=== PATIENT | female | born 1955 | race Caucasian/White ===

== ENCOUNTER 2022-07-31 15:04 | Emergency (ER) | payer MEDICARE, SELFPAY ==
[2022-07-31 15:07] VITALS: BP 191/79; PULSE 60; RESP 18; TEMP 36; O2SAT 97; BMI 34.0
--- NOTE | 2022-07-31 15:21 | CRLHL7_ITS ---
For Patients: As a result of the Century Cures Act, medical imaging exams and procedure reports are released immediately into your electronic medical record. You may view this report before your referring provider. If you have questions, please contact your health care provider. INDICATION: Headache. Trauma TECHNIQUE: Non-contrast CT of the head is submitted. No comparisons. FINDINGS: The ventricles, sulci and gyri are of normal size, shape and contour. Midline structures are centrally located. No convincing evidence of intra- or extra-axial fluid collections. Mild soft tissue swelling overlying the apical left parietal calvarium compatible with a small scalp hematoma. IMPRESSION: 1. No radiographic evidence of acute intracranial abnormalities. 2. Findings compatible with a small left parietal scalp hematoma Dictated by Mihir Ji MD @ 07/31/2022 3:41:29 PM Please note that all CT scans at this facility use dose modulation, iterative reconstruction, and/or weight-based dosing when appropriate to reduce radiation dose to as low as reasonably achievable. Dictated by: Mihir Ji MD @ 07/31/2022 15:41:36 (Electronically Signed)
--- NOTE | 2022-07-31 16:04 | ED_ITS ---
HPI - General Adult General Chief complaint: Head Injury/Pain Stated complaint: Fell this am, hit back of head Time Seen by Provider: 07/31/22 15:08 Source: patient Mode of arrival: ambulatory Limitations: no limitations History of Present Illness HPI narrative: 66-year-old female coming in today complaining of a fall that occurred approximately 7 hours prior to arrival. Patient slipped on the ice and fell backwards hitting her head on the concrete. She states that she has a headache that is mild but encompasses most of her head. She denies any neck pain. She denies confusion, fogginess or difficulty concentrating. She states that she had a bloody nose several hours after the fall she became concerned. She did not hit her face, she has no facial pain. Patient does take a daily aspirin. Related Data Home Medications Medication Instructions Recorded Confirmed B-complex with vitamin C 1 cap PO QDAY 11/26/21 07/31/22 amlodipine 5 mg tablet 5 mg PO DAILY 11/26/21 07/31/22 aspirin 81 mg tablet,delayed 81 mg PO QDAY 11/26/21 07/31/22 release (Adult Low Dose Aspirin) biotin 300 mcg tablet 300 mcg PO QDAY 11/26/21 07/31/22 cholecalciferol (vitamin D3) 125 125 mcg PO QDAY 11/26/21 07/31/22 mcg (5,000 unit) capsule coenzyme Q10 50 mg capsule 50 mg PO DAILY 11/26/21 07/31/22 lisinopril 5 mg tablet 5 mg PO DAILY 11/26/21 07/31/22 vitamin B complex 1 tab PO QDAY 11/26/21 07/31/22 metoprolol succinate 50 mg 50 mg PO BID 07/31/22 07/31/22 tablet,extended release 24 hr Previous Rx's Medication Instructions Recorded insulin aspart U-100 100 unit/mL 1 - 5 unit (0.01 - 0.05 mL) subcut 11/26/21 subcutaneous solution TIDWMEAL #10 mL metoprolol succinate 100 mg 100 mg PO DAILY #90 tabs 11/26/21 tablet,extended release 24 hr furosemide 20 mg tablet 20 mg PO QDAY CKD #90 tabs 12/22/21 nitroglycerin 0.4 mg sublingual 0.4 mg sublingual ONCE PRN CAD 12/22/21 tablet #100 tabs isosorbide mononitrate 60 mg 120 mg PO DAILY #180 tabs 04/08/22 tablet,extended release 24 hr hydrocodone 5 mg-acetaminophen 325 1 - 2 tab PO Q4H PRN pain #20 tabs 06/15/22 mg tablet prednisone 20 mg tablet 40 mg PO QDAY #10 tabs 06/24/22 Allergies Allergy/AdvReac Type Severity Reaction Status Date / Time olmesartan Allergy Intermediate hyperkalemi Verified 06/24/22 09:25 a benazepril Allergy Unknown Unknown Verified 06/24/22 09:25 HMG-CoA reductase inhibitor Allergy Mild Unknown Uncoded 06/24/22 09:25 Influenza Vaccines Allergy Mild Nausea Uncoded 06/24/22 09:25 Review of Systems Status of ROS: Reports: 10 or more systems reviewed and unremarkable except as noted in History and below [facility] History History of cardioversion (03/01/17) History of malignant neoplasm of uterus (2001) History of pulmonary valve stenosis History of sarcoma of soft tissue (2003) Surgical History History of coronary artery stent placement (07/2015) History of hysterectomy (2001) History of Alma Rosa-en-Y gastric bypass (2005) Family History Father Diabetes Sister Diabetes Mother COPD (chronic obstructive pulmonary disease) Social History Narrative: . in October 2021. [facility] [address] [facility]. On social security disability for endometrial cancer and associated health problems. 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 Moved back from [place] due to 's health issues. She has a daughter and 2 grand children in [place]. Originally from [place]. Walks for exercise. No tobacco, alcohol or recreational drug use. Smoking Status: Former smoker Do you use any of these nicotine containing products: None Second hand tobacco smoke exposure: No How often do you have a drink containing alcohol: monthly or less AUDIT-C Alcohol total score: 1 Non-prescribed substance use: denies use Little interest or pleasure in doing things: several days Feeling down, depressed, or hopeless: not at all Exam Narrative: Exam Narrative: Well-nourished well-developed patient in no acute distress. Alert and oriented. Answers questions appropriately. Mood and affect are appropriate. Thoughts ar e goal oriented and rational. No tangential or magical thinking noted. Patient speaks in full sentences without needing to catch her breath. Speech is not slurred or pressure. GCS is 15. There is no obvious bleeding. She is speaking and breathing without difficulty. HEENT: Normocephalic . Pupils are equally round reactive to light. Extraocular muscles are intact. Conjunctivae are moist without any icterus noted. Moist mucous membranes. Posterior pharynx is normal. Neck is soft without any lymphadenopathy or thyromegaly. No masses are appreciated. Patient does have a small hematoma on the posterior parietal area. There is no crepitus or significant tenderness noted around the area. Cardiovascular: Heart is regular rate and rhythm. Lungs: Clear to auscultation bilaterally. Skin: Well perfused without any obvious rashes. Const: Vital Signs, click to edit/add: Vital Signs - 24 hr 07/31/22 15:07 Temperature 96.8 F L Pulse Rate [Pulse Oximeter] 60 Respiratory Rate 18 Blood Pressure [Le ft Upper Arm] 191/79 H Pulse Oximetry 97 Oxygen Delivery Me thod Room Air Course Course Hospital Course: Given her age and headache we did go ahead and proceed with a head CT which read by me, did not show evidence of acute intracranial bleeding. Vital Signs Vital signs: Initial Vital Signs Temperature 96.8 F L 07/31/22 15:07 Temperature Source Temporal Artery Scan 07/31/22 15:07 Pulse Rate 60 07/31/22 15:07 Respiratory Rate 18 07/31/22 15:07 Blood Pressure 191/79 H 07/31/22 15:07 Blood Pressure Mean 116 07/31/22 15:07 Blood Pressure Position Sitting 07/31/22 15:07 Pulse Oximetry 97 07/31/22 15:07 Oxygen Delivery Method 07/31/22 15:07 Vital Signs Temperature 96.8 F L 07/31/22 15:07 Pulse Rate 60 07/31/22 15:07 Respiratory Rate 18 07/31/22 15:07 Blood Pressure 191/79 H 07/31/22 15:07 Pulse Oximetry 97 07/31/22 15:07 Oxygen Delivery Method 07/31/22 15:07 Temperature 96.8 F L 07/31/22 15:07 Pulse Rate 60 07/31/22 15:07 Respiratory Rate 18 07/31/22 15:07 Blood Pressure 191/79 H 07/31/22 15:07 Pulse Oximetry 97 07/31/22 15:07 Oxygen Delivery Method 07/31/22 15:07 Medical Decision Making MDM Narrative Medical decision making narrative: Fall with close head injury. We discussed symptomatic treatment reasons for follow-up. Patient was agreeable and had no other questions. Imaging Data CT scan - head: Attestation: I have reviewed the pertinent imaging results. Radiologist's impression: Headache. Trauma TECHNIQUE: Non-contrast CT of the head is submitted. No comparisons. FINDINGS: The ventricles, sulci and gyri are of normal size, shape and contour. Midline structures are centrally located. No convincing evidence of intra- or extra- axial fluid collections. Mild soft tissue swelling overlying the apical left parietal calvarium compatible with a small scalp hematoma. IMPRESSION: 1. No radiographic evidence of acute intracranial abnormalities. 2. Findings compatible with a small left parietal scalp hematoma Discharge Plan Discharge Clinical Impression: Acute head trauma Patient Disposition: Home, Self-Care Condition: Stable Additional Instructions: There was no evidence of bleeding inside your brain today. Okay to use Tylenol as needed for discomfort. You may experience increasing soreness across your neck and upper back tomorrow -okay to use heat to sore areas, do not apply heat directly to skin. Follow-up with your primary care provider as needed. Prescriptions: No Action prednisone 20 mg tablet 40 mg PO QDAY Qty: 10 0RF lisinopril 5 mg tablet 5 mg PO DAILY biotin 300 mcg tablet 300 mcg PO QDAY amlodipine 5 mg tablet 5 mg PO DAILY coenzyme Q10 50 mg capsule 50 mg PO DAILY aspirin [Adult Low Dose Aspirin] 81 mg tablet,delayed release (DR/EC) 81 mg PO QDAY B-complex with vitamin C Capsule 1 cap PO QDAY cholecalciferol (vitamin D3) 125 mcg (5,000 unit) capsule 125 mcg PO QDAY vitamin B complex Tablet 1 tab PO QDAY metoprolol succinate 100 mg tablet extended release 24 hr 100 mg PO DAILY Qty: 90 3RF insulin aspart U-100 100 unit/mL solution 1 - 5 unit subcut TIDWMEAL Qty: 10 12RF Rx Instructions: give as directed by sliding scale. Max daily dose of 20u/day. metoprolol succinate 50 mg tablet extended release 24 hr 50 mg PO BID nitroglycerin 0.4 mg tablet, sublingual 0.4 mg sublingual ONCE PRN (Reason: CAD) Qty: 100 0RF Rx Instructions: One tablet p.o. Q 5 minutes p.r.n. x3. furosemide 20 mg tablet 20 mg PO QDAY Qty: 90 2RF isosorbide mononitrate 60 mg tablet extended release 24 hr 120 mg PO DAILY Qty: 180 2RF hydrocodone-acetaminophen 5-325 mg tablet 1 - 2 tab PO Q4H PRN (Reason: pain) Qty: 20 0RF Follow Up/Referrals: Srinivas Demarco MD [Primary Care Provider] - Stand Alone Forms: MyHealth Info Instructions
== END 2022-07-31 16:11 | disposition home or self-care (01) ==
PROVIDERS: Emergency Provider Family Medicine; PCP Family Medicine
DX: S09.90XA Unspecified injury of head, initial encounter (principal); W00.0XXA Fall on same level due to ice and snow, initial encounter
CPT/HCPCS: 70450; 99283; 99284

== ENCOUNTER 2022-10-28 16:00 | Outpatient (RCR) | payer OTHER, SELFPAY ==
--- NOTE | 2022-07-15 11:31 | PT.OPEX ---
PT [place] Outpatient Eval INITIAL EVAL MEDICARE NEED SIGNATURE PT [facility] Outpatient Eval Start: 07/15/22 07:22 Freq: Status: Active Protocol: Document 07/15/22 07:24 UZAIR (Rec: 07/15/22 11:24 UZAIR [id number]) E-signed By Brian Bertrand DPT Physical Therapy Outpatient Evaluation Insurance Information Recert Due Date 10/08/22 Insurance Name Medicare B Medical Diagnosis neck pain, cervicalgia Treating Diagnosis neck pain, limited ROM, muscle weakness Referring MD abel galan Subjective Subjective Nevin comes into clinic dealing with neck pain that has been consistent for a month or more , mid April. She has been doing more traveling where she initially thought it was from driving. However, she does remember having a fall where she tweaked her neck and hit her head to a degree. Did get some tests for the head and neck but nothing came from it. Since than she has been having some level of pain that can vary 4 at rest to 9 with movement. heating the neck and mid back can help but not resolve symptoms. Notes bending down or looking down can irritate things and increase pain. Does feel limited in her ability to rotate her neck. NO sense of nausea or minimal headache symptoms. Pain Comments 4-01/31 Current Work Status Retired Occupation htn, hx of heart attacks, stent placement, hx of cancer Objective Other/Pertinent Objective CERVICAL ROM Flexion: 44 more painful vs ext Extension: 24 pain Right Rotation: 45 Left Rotation: 35 Right side bend: 10 Left Side bend: 8 SHOULDER AROM can reach 120- 130 degrees flexion B 100-110 degrees abduction but with increased UT pain after NECK/SHOULDER MMT: Shoulder shrug: R 4+/5 L4+ /5 Shoulder flexion: R 4-/5 L 4-/ 5 Shoulder abduction: R 4-/5 L4- /5 Shoulder External Rotation: R 4+/5 L4+ /5 Shoulder Internal Rotation: R 4+/5 L 4+/5 Elbow Flexion: R 4+/5 L 4+/5 Elbow Ext: R 4+/5 L 4+/5 SPECIAL TEST Spurlings Test: - Cervical distraction test: : - Shoulder impingement HawkinsJaleny Test: + B Neer Test: +B Lynn Test: +B Horizontal Adduction Test: +B JOINT MOBILITY/PALPATION increased upper trap tightness with referral to head increased sub occipital and cervical extensor tightness hypomobile cervical spine TX: chin tuck x 12 corner pec stretch 5 sec holds x 12 scap squeeze 5 sec holds x 12 trialed seated pec stretch did not tolerate Assessment Assessment/Impression Pt is a 66 yr old female who presents with concerns of neck pain. Patient also has notable objective findings including limited ROM, decreased strength also likely contributing to the problem. Patient is a good candidate for skilled therapy to target deficits described above. Skilled PT intervention is necessary for use of therapeutic exercise manual therapy, neuromuscular re- education, and therapeutic activity. Functional impairments include difficulty with: looking, reaching, pushing pulling, driving. See appropriate sections of PT eval for complete list of goals and POC. D/C plan and criteria is for pt to achieve the goals as listed below or until max rehab potential is met. Pt was agreeable with plan of care and goals established Plan of Care Rehabilitation Potential Good Physical Therapy Goals STG Patient will demonstrate/ report ability to reach to 135 degrees shoulder flexion and abduction with pain level <1/ 10, to allow for qa automation engineer, hygiene, work within 4 weeks Patient will report/ demonstrate ability to drive 45-60 minutes for community transportation within 4 weeks without limitations in head movements LTG Patient will demonstrate/ report ability to reach to 150 degrees shoulder flexion and abduction with pain level <1/ 10, to allow for qa automation engineer, hygiene, work within 8 weeks Patient will report or demonstrate the ability to have 4+/5 strength in all shoulder and elbow planes for household and recreational activity within 8 weeks. Patient will report/ demonstrate ability to drive 90-120 minutes for community transportation within 8 weeks without limitations in head movements Pt will be independent with HEP within 8 weeks to allow for independence and continued improvement past formal therapy Coordination/Communication With Referral Source Treatment Plan/Direct Interventions Joint Mobilization,Manual Therapy,Neuromuscular Re-ed, Self-Care/Home Management, Therapeutic Activities, Therapeutic Exercises Frequency/Duration 1-2 a week for 6-12 weeks Patient Will Be Discharged From Therapy Completion of LTG(s), Independent w/HEP, Independently Progressing Evaluation Billing Complexity Moderate Certification Information Initial Certification Date 07/15/22 Ending Certification Date 10/08/22 Physician Comment/Change : Physician NPI Number #
== END 2022-12-15 09:59 | disposition home or self-care (01) ==
PROVIDERS: PCP Family Medicine; Visit Provider Family Medicine
DX: M54.2 Cervicalgia (principal); Z51.89 Encounter for other specified aftercare
CPT/HCPCS: 97110; 97140; 97162; 97535

== ENCOUNTER 2023-02-04 13:55 | Outpatient (CLI) | payer MEDICARE, SELFPAY | END 2023-02-04 13:56 | disposition home or self-care (01) | LOC: NFLDREF 13:56 | PROVIDERS: PCP Family Medicine; Visit Provider Family Medicine | DX: E03.9 Hypothyroidism, unspecified (principal); I10 Essential (primary) hypertension; E78.5 Hyperlipidemia, unspecified; E66.9 Obesity, unspecified; E11.40 Type 2 diabetes mellitus with diabetic neuropathy, unspecified; N18.9 Chronic kidney disease, unspecified | CPT/HCPCS: 80053; 82043; 82570; 84439; 84443 ==

== ENCOUNTER 2023-04-21 09:48 | Outpatient (CLI) | payer MEDICARE, SELFPAY | END 2023-04-21 09:49 | disposition home or self-care (01) | LOC: NFLDREF 12:44 | PROVIDERS: PCP Family Medicine; Referring Provider Family Medicine; Visit Provider Internal Medicine Nephrology | DX: I13.0 Hypertensive heart and chronic kidney disease with heart failure and stage 1 through stage 4 chronic kidney disease, or unspecified chronic kidney disease (principal); I50.9 Heart failure, unspecified; N18.32 Chronic kidney disease, stage 3b; E11.22 Type 2 diabetes mellitus with diabetic chronic kidney disease; R80.9 Proteinuria, unspecified; E87.5 Hyperkalemia; R82.79 Other abnormal findings on microbiological examination of urine | CPT/HCPCS: 80069; 82043; 82570; 87086 ==

== ENCOUNTER 2023-04-28 11:00 | Outpatient (CLI) | payer MEDICARE, SELFPAY ==
--- NOTE | 2023-04-28 11:00 | CRLHL7_ITS ---
Patient: ANDRES HENRIQUEZ Facility:?[facility] Patient ID:?[id number] Site Patient ID:?[id number]. Site :?[id number] Study:?US-Abdomen RENAL-04/28/2023 11:43:30 AM Ordering Physician:Faith Parnell Final Report: CLINICAL HISTORY: CKD, HX ENDOMETRIAL CARCINOMA COMPARISON: 08/16/2019 TECHNIQUE: Marie scale and color Doppler images were acquired of the kidneys. FINDINGS: Partially exophytic hypoechoic structure arises from the upper pole of the left kidney measures 1.9 cm. The right kidney measures 9.4cm in length and the left kidney measures 9.2cm in length. The renal cortex measures 1.3 cm on the right and 1.2 cm on the left. Trace right perinephric fluid. No abnormal vascularity. IMPRESSION: Indeterminate hypoechoic structure arising from the upper pole of the left kidney, cyst versus other. CT recommended. No hydronephrosis. --ADDENDUM-- ADDENDUM: The sonogram images do in fact measure a lesion within the left kidney, however, there is no lesion within the left kidney on the subsequent MRI dated 07/22/2023. The suspicious renal lesion is indeed within the right kidney based on the MRI. The right renal lesion on MRI is not discernible on the ultrasound. In conclusion, the MRI shows a suspicious lesion within the right kidney without a left renal lesion. The ultrasound images appear correct and the structure measured on the left appears to have been artifactual. Puneet Montemayor M.D. Diagnostic Radiologist [email or web address] SOHAIL/ashlyn D& Transcribed: 12:14 p.m. Dictated by Puneet Montemayor MD @ 04/28/2023 12:09:48 PM (Electronically Signed)
== END 2023-04-28 11:01 | disposition home or self-care (01) ==
LOC: US 11:01
PROVIDERS: PCP Family Medicine; Visit Provider Internal Medicine Nephrology
DX: N18.9 Chronic kidney disease, unspecified (principal)
CPT/HCPCS: 76775

== ENCOUNTER 2023-05-07 15:20 | Outpatient (CLI) | payer MEDICARE, SELFPAY | END 2023-05-07 15:21 | disposition home or self-care (01) | PROVIDERS: PCP Family Medicine; Visit Provider Internal Medicine Cardiovascular Disease | DX: Z00.00 Encounter for general adult medical examination without abnormal findings (principal); E78.5 Hyperlipidemia, unspecified | CPT/HCPCS: 80061 ==

== ENCOUNTER 2023-07-07 08:08 | Outpatient (CLI) | payer MEDICARE, SELFPAY ==
--- OUTSIDE RECORDS SUMMARY | 2023-07-07 12:47 | XMS_ITS | Clinical Summary ---
Author Name Unknown Organization [facility] Address [place], [place] [address] Care Team Providers Care Respiratory Therapy Manager Name Role Phone Srinivas Demarco MD Primary Care Provider [phone] Allergies Active Allergy Reactions Criticality Noted Date Comments Benazepril Headache 10/12/2005 Influenza Virus Vaccines Nausea Only 11/27/2004 Olmesartan Hyperkalemia 08/12/2019 Rcgvvid-Xiy-Adc Reductase Inhibitors *Unknown 12/14/2016 Tolerating Atorvastatin as of 09/14/2019 Medications Medication Sig Dispensed Refills Start Date End Date Status coQ10, ubiquinol, 100 mg cap Take 1 capsule by mouth once daily. 0 Active acetaminophen (TYLENOL EXTRA STRENGTH) 500 mg tablet Take 1,000 mg by mouth every 6 hours if needed (muscle pain, cramping). Max acetaminophen dose: 4000mg in 24 hrs. 0 Active insulin aspart U-100 (NOVOLOG) 100 unit/mL (3 mL) solution for injection Inject subcutaneous. Dose per carbs. Usually 3-5 units BID WM, and rarely extra dose with high calorie meal midday 0 Active aspirin chewable 81 mg chewable tabletIndications: Coronary artery disease, angina presence unspecified, unspecified vessel or lesion type, unspecified whether [place] or transplanted heart Take 1 tablet by mouth once daily. 90 tablet 3 08/15/2019 Active nitroglycerin (NITROSTAT) 0.4 mg sublingual tabletIndications: Coronary artery disease, angina presence unspecified, unspecified vessel or lesion type, unspecified whether [place] or transplanted heart Place 1 tablet under the tongue every 5 minutes if needed for Chest Pain (Up to 3 doses). 25 tablet. 4 04/24/2020 Active cholecalciferol, Vitamin D3, (VITAMIN D-3) 5,000 unit tab tablet Take 1 tablet by mouth once every other day. 90 tablet 1 06/07/2020 Active iron, carbonyl (PERFECT IRON) 25 mg iron tab Take by mouth. 0 06/07/2020 Active medication order composer B complex with vitamin C 1 tablet daily in the pm 0 09/04/2020 Active biotin 5,000 mcg TbDi Take 1 Tablet (5,000 mcg) by mouth. 0 09/04/2020 Active Pikkk-6-LHH-EPA-Fi sh Oil (Fish Oil) 1,200 (144-216) mg capsule Take by mouth. 0 09/04/2020 Active medication order composer Beet extract 3 tabs daily 0 09/04/2020 Active cyanocobalamin (VITAMIN B12) 1,[address] under the tongue once daily. 0 09/04/2020 Active isosorbide mononitrate (IMDUR) 60 mg extended release tablet 24 hourIndications:HT N (hypertension),Cor onary artery disease involving [place] coronary artery of [place] heart with unstable angina pectoris (HC) TAKE TWO TABLETS BY MOUTH EVERY DAY 60 tablet. 0 09/08/2020 Active HYDROcodone-acetam inophen (NORCO) 5-325 mg per tablet States takes as needed 0 09/25/2020 Active furosemide (LASIX) 20 mg tabletIndications: Stage 3b chronic kidney disease (HC),HTN (hypertension),Hyp erkalemia TAKE ONE TABLET BY MOUTH EVERY MORNING 90 Tablet 3 12/03/2021 Active medication order composer Garlic with turmeric and cayenne 200 mg BID 0 01/01/2022 Active Zinc Gluconate 30 mg tablet Take by mouth once daily. 0 01/01/2022 Active medication order composer Quercetin 500mg once daily 0 01/01/2022 Active amLODIPine (NORVASC) 5 mg tabletIndications: HTN (hypertension) Take 2 Tablets (10 mg) by mouth once daily. 180 Tablet 3 01/13/2022 Active metoprolol succinate (TOPROL XL) 50 mg sustained-release tabletIndications: HTN (hypertension) TAKE 2 TABLETS BY MOUTH ONCE DAILY. 180 Tablet 3 10/29/2022 Active lisinopriL (PRINIVIL; ZESTRIL) 5 mg tabletIndications: HTN (hypertension),Pro teinuria, unspecified type TAKE ONE TABLET BY MOUTH ONCE EVERY DAY IN THE EVENING. 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 Per pt, s/p radiation and resection History of endometrial cancer 08/16/2019 Hypomagnesemia 08/14/2019 Elevated troponin level not due to acute coronar y syndrome 08/13/2019 Stress-induced cardiomyopathy 08/13/2019 CAD (coronary artery disease) 08/12/2019 Overview: - 08/19/19: s/p BENEDICT pLAD, s/p BENEDICT dLAD HTN (hypertension) 08/12/2019 HLD (hyperlipidemia) 08/12/2019 Hyperkalemia 08/12/2019 Atrial flutter 08/12/2019 NSTEMI (non-ST elevated myocardial infarction) 0 07/23/2019 Overview: BENEDICT to prox and distal LAD 08/18/2019 Hypertensive heart disease without heart failure History of coronary artery stent placement History of atrial flutter Type 2 diabetes mellitus with hyperlipidemia Diabetic nephropathy associa rocio with type 2 diabetes mellitus Proteinuria Contrast dye induced nephropathy Hypervolemia Type 2 diabetes with complication Obesity Hyperlipidemia Edema Benign essential HTN Resolved Problems Problem Noted Date Diagnosed Date Resolved Date Acute non-ST elevation myoca rdial infarction (NSTEMI) 08/17/2019 09/04/2020 Hyperkalemia 08/14/2019 02/13/2021 CHARLY (acute kidney injury) Chronic kidney disease, stage III (moderate) 09/04/2020 ATN (acute tubular necrosis) 09/04/2020 Encounters Date Type Department Care Team Description 05/07/2023 3:00 PM FIBER OPTIC ASSEMBLY WORKER Office Visit [facility] [address] [place] [address] Kosta James MD from Last 3 Months Family History Medical History Relation Name Comments Diabetes Maternal Grandfather Diabetes Paternal Grandmother Diabetes Sister Cancer-breast No Family History Cancer-colon No Family History Relation Name Status Comments Maternal Grandfather Paternal Grandmother Sister Social History Tobacco Use Types Packs/Day Years Used Date Smoking Tobacco: Former Smokeless Tobacco: Never Tobacco Cessation:Counseling Given: Yes Alcohol Use Standard Drinks/Week Comments Not Currently 0 (1 standard drink = 0.6 oz pur e alcohol) Social Connections Answer Date Recorded Frequency of Communication with Friends and Fami ly Not on file 05/14/2021 Financial Resource Strain Answer Date R ecorded Difficulty of Paying Living Expenses Not on file 05/14/2021 Difficulty of Paying Living Expenses Not on file 05/14/2021 Sex and Gender Information Value Date Recorded Sex Assigned at Not on file Gender Identity Not on file Sexual Orientation Not on file Obstetrics History Last Filed Vital Signs Vital Sign Reading Time Taken Comments Blood Pressure 138/80 05/07/2023 3:23 PM FIBER [employer] ASSEMBLY WORKER Pulse 57 05/07/2023 3:23 PM FIBER OPTIC ASSEMBLY WORKER Temperature 36.6 ??C (97.9 ??F) 01/09/2022 11:43 PM C DT Respiratory Rate 16 01/30/2022 1:20 PM CDT Oxygen Saturation 99% 05/07/2023 3:23 PM FIBER [employer]IC ASSEMBLY WORKER Inhaled Oxygen Concentration - - Weight 86.6 kg (191 lb) 01/30/2022 1:20 PM CDT Height 162.6 cm (5' 4) 01/09/2022 11:43 PM CDT Body Mass Index 32.79 01/09/2022 11:43 PM CDT Plan of Treatment Health Maintenance Due Date Last Done Comments COVID-19 vaccine series (#1) [birth year]11/1956 Pneumococcal series for age 65+ (1 of 2 - PCV) 1960 Tdap 1965 Depression screening for age 12+ 1966 Hepatitis C screening for age 18-79 1972 Tetanus booster 1974 Colonoscopy through age 75 10/10/1999 Mammogram for age 45-75 10/10/1999 Zoster (shingles) series for age 50+ (1 of 2) 2004 DEXA/DXA scan for age 65+ 10/10/2019 Medicare Wellness for age 65+ 10/10/2019 BMI (ht and wt on same day) for age 18+ 09/14/2020 0 09/15/2019 Influenza for age 65+ 01/22/2023 Lipids for age 45-75 05/30/2025 05/30/2020, 08/12/19 20 Advance Directives Latest Code Status on File Code Status Date Activated Date Inactivated Comments Full Code 08/12/2019 12:58 AM 08/20/2019 4:14 PM Care Teams Respiratory Therapy Manager Relationship Specialty Start Date End Date Srinivas Demarco MD [address] [place] [address] PCP - General Family Practice 09/04/20
== END 2023-07-07 08:09 | disposition home or self-care (01) ==
LOC: NFLDREF 12:45
PROVIDERS: PCP Family Medicine; Referring Provider Family Medicine; Visit Provider Internal Medicine Nephrology
DX: N18.9 Chronic kidney disease, unspecified (principal); I10 Essential (primary) hypertension; N28.9 Disorder of kidney and ureter, unspecified
CPT/HCPCS: 80069; 82043; 82570; 87086

== ENCOUNTER 2023-07-13 09:58 | Outpatient (CLI) | payer MEDICARE, SELFPAY ==
--- OUTSIDE RECORDS SUMMARY | 2023-07-13 10:00 | XMS_ITS | Clinical Summary ---
Author Name Unknown Organization [facility] Address [place], [place] [address] Care Team Providers Care Grinder Setup Operator Name Role Phone Srinivas Demarco MD Primary Care Provider [phone] Allergies Active Allergy Reactions Criticality Noted Date Comments Benazepril Headache 10/12/2005 Influenza Virus Vaccines Nausea Only 11/27/2004 Olmesartan Hyperkalemia 08/12/2019 Diaouxr-Cga-Kfl Reductase Inhibitors *Unknown 12/14/2016 Tolerating Atorvastatin as [...] unspecified vessel or lesion type, unspecified whether [place] or transplanted heart Take 1 tablet by mouth once daily. 90 tablet 3 08/15/2019 Active nitroglycerin (NITROSTAT) 0.4 mg sublingual tabletIndications: Coronary artery disease, angina presence unspecified, unspecified vessel or lesion type, unspecified whether [place] or transplanted heart Place 1 tablet under [...] (5,000 mcg) by mouth. 0 09/04/2020 Active Mtgld-2-RJH-EPA-Fi sh Oil (Fish Oil) 1,200 (144-216) mg capsule Take by mouth. 0 09/04/2020 Active medication order composer Beet extract 3 tabs daily 0 09/04/2020 Active cyanocobalamin (VITAMIN B12) 1,[address] under the tongue once daily. 0 09/04/2020 Active isosorbide mononitrate (IMDUR) 60 mg extended release tablet 24 hourIndications:HT N (hypertension),Cor onary artery disease involving [place] coronary artery of [place] heart with unstable angina pectoris (HC) TAKE [...] Department Care Team Description 05/07/2023 3:00 PM MANAGER HOTEL Office Visit [facility] at [facility] [address] [place] [address] Kosta James MD from Last 3 Months [...] Comments Blood Pressure 138/80 05/07/2023 3:23 PM MANAGER HOTEL Pulse 57 05/07/2023 3:23 PM MANAGER HOTEL Temperature 36.6 ??C (97.9 ??F) 01/09/2022 11:43 PM C DT Respiratory Rate 16 01/30/2022 1:20 PM CDT Oxygen Saturation 99% 05/07/2023 3:23 PM MANAGER HOTEL Inhaled Oxygen Concentration - - Weight 86.6 [...] 12:58 AM 08/20/2019 4:14 PM Care Teams Grinder Setup Operator Relationship Specialty Start Date End Date Srinivas Demarco MD [address] [place] [address] PCP - General Family Practice 09/04/20
== END 2023-07-13 09:59 | disposition home or self-care (01) ==
LOC: NFLDREF 09:58
PROVIDERS: PCP Family Medicine; Visit Provider Internal Medicine Nephrology
DX: N18.4 Chronic kidney disease, stage 4 (severe) (principal)
CPT/HCPCS: 87086

== ENCOUNTER 2023-07-22 14:52 | Outpatient (CLI) | payer MEDICARE, SELFPAY ==
--- NOTE | 2023-07-22 15:15 | MR_ITS ---
Patient: ANDRES HENRIQUEZ Facility:?[facility] Patient ID:?[id number] Site Patient ID:?[id number]. Site :?[id number] Study:?MRI-Abdomen W/ and W/O Cont 20 CC DOATERM KIDNEYS-07/22/2023 4:25:19 PM Ordering Physician:JANAY THOMAS Final Report: INDICATION: Kidney lesion. COMPARISON: Ultrasound examination of the kidneys April 28, 2023. TECHNIQUE: Precontrast T1 and T2 weighted imaging; T2 haste imaging; diffusion weighted imaging; in and out of phase imaging; postcontrast imaging including subtraction; 20 cc of Dotarem contrast was injected. FINDINGS: A 1.7 cm solid enhancing lesion upper pole right kidney; rule out small renal cell carcinoma. No other kidney abnormalities identified. No focal hepatic or splenic pathology. No pancreatic pathology. Status post cholecystectomy. No adrenal pathology. No retroperitoneal lymphadenopathy. No evidence of abdominal ascites. IMPRESSION: 1. 1.7 cm solid enhancing lesion upper pole right kidney; rule out small renal cell carcinoma; urologic consultation suggested. 2. Status post cholecystectomy. Dictated by Sandra Noel MD @ 07/23/2023 9:52:36 PM Signed by:?Sandra Noel MD @07/23/2023 9:52:36 PM (Electronic Signature)
== END 2023-07-22 14:53 | disposition home or self-care (01) ==
LOC: MRI 14:53
PROVIDERS: PCP Family Medicine; Visit Provider Family Medicine
DX: N28.9 Disorder of kidney and ureter, unspecified (principal)
CPT/HCPCS: 74183; A9575

== ENCOUNTER 2023-10-11 10:15 | Outpatient (CLI) | payer MEDICARE, SELFPAY ==
--- OUTSIDE RECORDS SUMMARY | 2023-10-29 10:05 | XMS_ITS | Clinical Summary ---
Author Organization [facility] Address [address] [place] [address] Care Team Providers Care Imcu Nurse Name Role Phone Elsewhere, Pcp Primary Care Provider Unavailabl e Source Comments Patient records contain information from all sites at [facility]. For routine questions regarding patient records, call [phone] during business hours, M-F 8:00 AM - 5:00 PM Central Time. Record requests for emergency care only can be directed to [phone] at any time.[facility] Allergies Active Allergy Reactions Criticality Noted Date Comments Benazepril Headache 10/12/2005 Influenza Virus Vaccines Nausea Only 11/27/2004 Fkkdxiq-Qsi-Auq Reductase Inhibitors Other (see comments) 12/14/2016 rush lists myalgia as a reaction Medications Medication Sig Dispensed Refills Start Date End Date Status cyanocobalamin-salc aprozat sod 1,000-100 mcg-mg tablet Vitamin B-12 09/29/2016 Active HYDROcodone-acetami nophen (NORCO) 5-325 mg per tablet Take 1 tablet by mouth every 4 (four) hours as needed. 12/14/2016 Active insulin NPH (NovoLIN N NPH U-100 Insulin) 100 unit/mL injection Inject 0.07 mL (7 Units total) under the skin 2 (two) times a day. 10 mL 3 04/20/2018 Active triamcinolone (KENALOG) 0.5 % cream Apply topically 4 (four) times a day as needed for rash. 30 g 11 04/20/2018 Active Additional Information Patient not taking.Reported on 11/18/2018 insulin syringe-needle U-100 0.3 mL 31 gauge x 5/16 syringe 5 Injection daily. 700 each 3 10/27/2018 Active NOVOLOG U-100 INSULIN ASPART 100 unit/mL injection INJECT 10 UNITS (0.1 ML) UNDER THE SKIN FOUR TIMES DAILY 20 mL 11 05/02/2019 Active furosemide (LASIX) 40 mg tablet TAKE ONE TABLET BY MOUTH EVERY DAY NEEDED 90 tablet 3 08/01/2019 Active acetaminophen (TYLENOL) 500 mg tablet Take 1,000 mg by mouth as needed. Active amLODIPine (NORVASC) 10 mg tablet Take 10 mg by mouth daily. 08/14/2019 Active aspirin 81 mg chewable tablet Chew 81 mg daily. 08/15/2019 Ac tive atorvastatin (LIPITOR) 40 mg tablet Take 40 mg by mouth daily. 08/14/2019 Active nitroglycerin (NITROSTAT) 0.[address] 0.4 mg under the tongue as needed. 08/14/2019 Active clopidogreL (PLAVIX) 75 mg tablet Take 75 mg by mouth daily. 08/21/2019 Active hydrALAZINE (APRESOLINE) 100 mg tablet Take 100 mg by mouth 3 (three) times a day. 08/20/2019 Active chlorthalidone (HYGROTON) 25 mg tablet Take 25 mg by mouth daily. 08/14/2019 Active metoprolol succinate (TOPROL-XL) 100 mg 24 hr tablet Take 100 mg by mouth daily. 08/14/2019 Active Active Problems Problem Noted Date Diagnosed Date Diabetes Mellitus Type 2 Wit h Other Circulatory Complication 08/29/2019 Diabetes Mellitus Type 2 Wit h Diabetic Chronic Kidney Disease 08/29/2019 Presence Of Coronary Angiopl asty Implant And Graft Status Post 08/29/2019 Non-ST Elevation Myocardial Infarction 0 Atrial Septal Defect Unspecified 08/16/2019 Cardiomyopathy Stress Induced 08/13/2019 Obstructive Sleep Apnea Adult 03/22/2017 Persistent Atrial Fibrillation 02/23/2017 Overview: Persistent Atrial Fibrillation Chronic Kidney Disease (CKD) , Stage 3b Glomerular Filtration Rate (GFR) 30 To 44 02/15/2017 Overview: Chronic Kidney Disease (CKD) Stage 3 GFR 30-59\.br\Per External Records Morbid Obesity 02/15/2017 Overview: Morbid Obesity Body Mass Index (BMI) over 40 Adult\.br\Rule activated problem due to BMI 40-44 posted on 12/14 at 11:18 CDT. Primary Osteoarthritis Hip Bilateral 12/14/2016 Hypertension Essential Primary 09/29/2016 Overview: Hypertension (HTN) Essential Benign Atherosclerotic Heart Diseas e Of [place] Coronary Artery Without Angina Pectoris 09/29/2016 Overview: Coronary Artery Disease (CAD) [place] Vessel Hypercholesterolemia 09/29/2016 Lymphedema 09/29/2016 Overview: right arm Resolved Problems Problem Noted Date Diagnosed Date Resolved Date Fpc Anticoagulant Treatment [Z79.01] 05/31/2017 06/29/2017 Monitoring For Therapeutic D rug Therapy [Z51.81] 05/31/2017 06/29/2017 Flutter Atrial 03/01/2017 04/21/2018 Chronic Kidney Disease NOS 10/28/2016 1 06/21/2017 Overview: Chronic Kidney Disease (CKD) NOS Per External Records Obesity Body Mass Index 30-39.9 Adult 10/28/2016 04/21/2018 Overview: Per External Records Diabetes Mellitus Type 2 Wit h Other Circulatory Complication 10/15/2003 08/29/2019 Encounters Date Type Department Care Team Description 10/13/2023 11:30 AM CDT External Outreach Division of Nephrology and Hypertension in [place], [place] [address] [place] [address] Soheila Blake M.D., Ph.D. Chronic Kidney Disease Stage 4 Glomerular Filtration Rate 15-29 (HCC) (Primary Dx); Hypertension Essential Primary; Proteinuria; Hyperkalemia; Mass Kidney 10/12/2023 Clinical Communication Division of Nephrology and Hypertension in [place], [place] [address] [place] [address] Lary Nguyen R.N. from Last 3 Months Family History Medical History Relation Name Comments Diabetes Father Heart failure Father Diabetes Grandfather Maternal Obesity Grandmother Paternal COPD Mother Relation Name Status Comments Father Grandfather Maternal Grandmother Paternal Mother Social History Tobacco Use Types Packs/Day Years Used Date Smoking Tobacco: Former Smokeless Tobacco: Never PHQ-2 Answer Date Recorded PHQ-2 Score 0 10/26/2018 Nutrition Answer Date Recorded Nutrition: EVOO Fat Source Unknown 07/12 Nutrition: Servings of Fruits/Vegetables per Day Not on file 07/12/2020 Dental Answer Date Recorded Dental: Regular Dentist Unknown 07/12/19 21 Sex and Gender Information Value Date Recorded Sex Assigned at Not on file Gender Identity Not on file Sexual Orientation Not on file Last Filed Vital Signs Vital Sign Reading Time Taken Comments Blood Pressure 157/50 11/18/2018 3:52 PM CDT Pulse 62 11/18/2018 3:52 PM CDT Temperature 36.2 ??C (97.2 ??F) 11/18/2018 3:52 PM CD T Respiratory Rate 16 04/20/2018 12:33 PM HOME HEALTH CARE WORKER Oxygen Saturation 100% 11/18/2018 3:52 PM CDT Inhaled Oxygen Concentration - - Weight 103 kg (227 lb 15.3 oz) 07/26/2019 9:00 A M HOME HEALTH CARE WORKER Height 163 cm (5' 4.17) 07/26/2019 9:00 AM HOME HEALTH CARE WORKER Body Mass Index 38.92 07/26/2019 9:00 AM HOME HEALTH CARE WORKER Plan of Treatment Health Maintenance Due Date Last Done Comments Bone Density Scan (Osteoporo sis Screen) 1954 CT Colonography 1954 Cologuard 1954 FIT 1954 Mammogram 1955 Office Visit for Blood Press ure Check / Re-check 1954 Pneumococcal vaccine (65+ ye ars) (1 of 2 - PCV) 1960 Zoster Vaccines (1 of 2) 2004 Hepatitis B Vaccines (1 of 3 - Risk 3-dose series) 2014 Hemoglobin A1C 10/18/2018 04/20/2018, 01/23, 09/29/2016 Diabetic Office Visit with F oot Exam 04/20/2019 04/20/2018, 04/20/2018, 04/20/2018, Additional history exists Urine Albumin 04/20/2019 04/20/2018, 01/23, 09/29/2016 Colonoscopy 11/06/2019 11/05/2009 Colorectal Cancer Screening 11/06/2019 Dilated Eye Exam 01/22/2022 01/22/2021 COVID-19 Vaccine ( - 2022-2 4 season) 2023 Influenza Vaccine (#1) 2023 Depression Screening (Annual PHQ-2) 05/24/2023 Fall Risk Screen (Annual) 05/24/2023 Creatinine Level (Kidney Fun ction Test) 10/10/2024 10/11/2023, 12/11/2022, 01/01/2022, Additional history exists Potassium Level 10/10/2024 10/11/2023, 11/22, 01/01/2022, Additional history exists Sodium Level 10/10/2024 10/11/2023, 11/22, 01/01/2022, Additional history exists Lipid (Cholesterol) Screening 05/30/2025, 08/12/2019, 04/20/2018, Additional history exists DTaP,Tdap,and Td Vaccines (2 - Td or Tdap) 07/23/2030 07/23/2020 Hepatitis C Screening Completed 04/20/2018 Medical Devices Implanted Type Area Senior Compensation Consultant Device Identifier Shelf Expiration Date Model / Serial / Lot Cardiac Stent Cardiac Stent Heart Procedures Procedure Name Priority Date/Time Associated Diagnosis Comments EXTP COMPLETE BLOOD COUNT, BLOOD Routine 10/11/2023 EXTP URINALYSIS WITH MICROSCOPY, URINE Routine 10/11/2023 EXTP COMPLETE METABOLIC PANEL, BLOOD Routine 10/11/2023 EXTI LIPID PANEL W REFLEX MEASURED LDL Routine 05/30/2020 2:16 PM HOME HEALTH CARE WORKER ALBUMIN, RANDOM, U Routine 04/20/2018 1: 56 PM HOME HEALTH CARE WORKER Diabetes Mellitus Type 2 (HCC) HCV AB SCRN W/REFLEX TO HCV PCR, S Routine 04/20/2018 1:43 PM HOME HEALTH CARE WORKER Wellness Screening HEMOGLOBIN A1C, B Routine 04/20/2018 1:4 3 PM HOME HEALTH CARE WORKER Diabetes Mellitus Type 2 (HCC) from Last 3 Months or Most Recently Relevant to Health Maintenance Results * (ABNORMAL) EXT Urinalysis with Microscopy, Urine (10/11/2023) EXT Appearance, Urine clear [facility] [place]) EXT Glucose Qualitative, Urine Negative Negative [facility] EXT Ketones, POCT, Urine Negative Negative [facility]) EXT Protein, Urine 1+ [facility] EXT Nitrite, Urine Negative Negative [facility]) EXT Bilirubin, Urine Negative Negative, None detected [facility] EXT Specific [place], POCT, Urine 1.02 1.000 - 1.030 [facility] EXT pH, Random, Urine 5.5 5.0 - 8.5 [facility] EXT Urobilinogen, Urine 0.2 1.0, 0.2, Unable to interpret due to interfering substances [facility] EXT Leukocyte Esterase, Urine 2+(A) Negative [facility]) Urine (Urine, Voided) 10/11/2023 Historical Provider LAB URINE ORDERABLES [facility]) [address] [place] [address], [facility] [phone] * (ABNORMAL) EXT Complete Metabolic Panel, Blood (10/11/2023) EXT Albumin 3.9 3.3 - 5.0 [facility]) EXT BUN (Blood Urea Nitrogen) 77(A) 7 - 30 [facility]) EXT Calcium, Total 8.8 8.4 - 10.6 [facility]) EXT Chloride 113 96 - 114 [facility]) EXT CO2 18(A) 20 - 32 [facility] [place]) EXT Creatinine 2.9(A) 0.5 - 1.5 [facility], [facility] [place]) EXT Glucose 102 60 - 115 [facility] [place]) EXT Potassium 5.0 3.6 - 5.1 [facility], [facility] [place]) EXT Sodium 138 135 - 149 [facility] [place]) Blood (Blood, Venous) 10/11/2023 Historical Provider LAB BLOOD NON ADD-ON Performing Organization Address City/[facility] [place] [address], [facility] [phone] * (ABNORMAL) EXT Complete Blood Count, Blood (10/11/2023) EXT Hemoglobin 11.0(A) 12.0 - 16.0 [facility]) EXT Hematocrit 33 33.0 - 51.0 [facility] [place]) EXT RBC 3.61(A) 4.00 - 5.20 [facility]) EXT MCV 91 80 - 100 [facility] Blood (Blood, Venous) 10/11/2023 Historical Provider LAB BLOOD NON ADD-ON Performing Organization Address City/[facility]/ZIP Co de Phone Number [facility]) [address] [place] [address], [facility] [phone] * (ABNORMAL) Microalbumin, Random, Urine (04/20/2018 1:56 PM HOME HEALTH CARE WORKER) Microalbumin 1769.6 mg/L 04/20/2018 2:39 PM HOME HEALTH CARE WORKER [facility] Creatinine 87 mg/dL 04/20/2018 2:39 PM HOME HEALTH CARE WORKER [facility] Albumin/Creatinin e Ratio 2034(H) <25 mg/g 04/20/2018 2:39 PM HOME HEALTH CARE WORKER [facility] Urine (Urine, Clean Catch) 04/20/2018 1:56 PM HOME HEALTH CARE WORKER 04/20/2018 1:56 PM HOME HEALTH CARE WORKER Javier Harmon M.D., Ph.D. LAB URINE ORDER AJ Performing Organization Address City/[facility]/ZIP Co de Phone Number [facility] [address] [place] [address] * HCV Ab Scrn w/Reflex to HCV PCR, Serum (04/20/2018 1:43 PM HOME HEALTH CARE WORKER) HCV Ab Screen, S Nonreactive Nonreactive 04/21/2018 8:25 AM HOME HEALTH CARE WORKER [facility] Blood (Blood, Venous) 04/20/2018 1:43 PM HOME HEALTH CARE WORKER 04/20/2018 10:02 PM HOME HEALTH CARE WORKER Narrative [facility] - 04/21/2018 8:25 AM HOME HEALTH CARE WORKER Specimen Information: Specimen ID: [id number] Specimen Type: Blood Specimen Collection Start Date: 04/20/2018 ??1:43 PM Specimen Received Date: 04/20/2018 10:02 PM Specimen ID: [id number] Specimen Type: Blood Specimen Collection Start Date: 04/20/2018 ??1:43 PM Specimen Received Date: 04/20/2018 10:02 PM Javier Harmon M.D., Ph.D. LAB MICROBIOLOG Y - BLOOD ORDERABLES [facility] [address] [place] [address] * (ABNORMAL) Hemoglobin A1c (04/20/2018 1:43 PM HOME HEALTH CARE WORKER) Hemoglobin A1c, B 7.4(H) 4.2 - 5.6 % 04/20/2018 2:08 PM HOME HEALTH CARE WORKER [facility] Comment: Hemoglobin A1c values greater than or equal to 6.5 percent are diagnostic for diabetes mellitus. ??Diagnosis should be confirmed by repeat testing. ??In diabetic patients, HbA1c goals should be discussed with healthcare provider. Blood (Blood, Venous) 04/20/2018 1:43 PM HOME HEALTH CARE WORKER 04/20/2018 1:43 PM HOME HEALTH CARE WORKER Javier Harmon M.D., Ph.D. LAB BLOOD ADD-O N Performing Organization Address City/State/[facility] Co de Phone Number [facility] [id number] [place] [id number], [facility] from Last 3 Months or Most Recently Relevant to Health Maintenance Care Teams Imcu Nurse Relationship Specialty Start Date End Date Elsewhere, Pcp PCP - General Internal Medicine 08/04/19
--- OUTSIDE RECORDS SUMMARY | 2023-10-29 10:06 | XMS_ITS | Encounter Summary ---
Author Organization [facility] Address [address] [place] [address] Care Team Providers Care Can Slider Name Role Phone Elsewhere, Pcp Primary Care Provider Unavailabl e Encounter Details Date Type Department Care Team ([facility] st Contact Info) Description 10/12/2023 Clinical Communication Division of Nephrology and Hypertension in [place], [place] [address] [place] [phone] Lary Nguyen R.N. [address] [place] [phone] Social History Tobacco Use Types Packs/Day Years [...] on file Sexual Orientation Not on file documented as of this encounter Miscellaneous Notes * Telephone Encounter - Soheila Blake M.D., Ph.D. - 10/27/2023 1:14 PM CDT ----- Message from Estela Rob sent at 10/22/2023 2:02 PM CDT ----- Regarding: FW: Renal Ultrasound Addendum ----- Message ----- From: Vee Millard Sent: 10/22/2023 1:38 PM CDT To: Estela Villaseñor; Lary Ramos R.N. Subject: FW: Renal Ultrasound Addendum ##This message is being forwarded to you as you were the original intended recipient## ?? Please see message below (you may need to click the Previous Message header to view). ?? If you are needing to respond, please click reply, remove my name, and add the original sender, --, in the To: section. ?? If further action is needed on your end, please enlist your staff to assist as this message is onlybeing forwarded to you. Thank you. ----- Message ----- From: Lary Ramos R.N. Sent: 10/22/2023 12:07 PM CDT To: Rst Kamara Link [facility]ps Subject: Renal Ultrasound Addendum Renal Sound Addendum uploaded to [employer] for Dr. Breezy Kirk * Telephone Encounter - Lary Nguyen R.N. - 10/12/2023 10:44 AM CDT Images from the original note were not included. Labs collected 10/11/23 for Nevin Velez documented in this encounter Plan of Treatment Not on file documented as of this encounter Procedures Procedure Name Priority Date/Time Associated Diagnosis Comments EXTP URINALYSIS WITH MICROSCOPY, URINE Routine 10/11/2023 EXTP COMPLETE METABOLIC PANEL, BLOOD Routine 10/11/2023 EXTP COMPLETE BLOOD COUNT, BLOOD Routine 10/11/2023 documented in this encounter Results * (ABNORMAL) EXT Complete Blood Count, Blood (10/11/2023) EXT Hemoglobin 11.0(A) 12.0 - 16.0 [facility] EXT Hematocrit 33 33.0 - 51.0 [facility] EXT RBC 3.61(A) 4.00 - 5.20 [facility] EXT MCV 91 80 - 100 [facility] Blood (Blood, Venous) 10/11/2023 Historical Provider LAB BLOOD NON ADD-ON [facility] [address] [place] [address] * (ABNORMAL) EXT Urinalysis with Microscopy, Urine (10/11/2023) EXT Appearance, Urine clear [facility]) EXT Glucose Qualitative, Urine Negative Negative [facility] EXT Ketones, POCT, Urine Negative Negative [facility] EXT Protein, Urine 1+ [facility] EXT Nitrite, Urine Negative Negative [facility] EXT Bilirubin, Urine Negative Negative, None detected [facility] EXT Specific [place], POCT, Urine 1.02 1.000 - 1.030 [facility]) EXT pH, Random, Urine 5.5 5.0 - 8.5 [facility] EXT Urobilinogen, Urine 0.2 1.0, 0.2, Unable to interpret due to interfering substances [facility] EXT Leukocyte Esterase, Urine 2+(A) Negative [facility] Urine (Urine, Voided) 10/11/2023 Historical Provider LAB URINE ORDERABLES [facility] [address] [place] [address], [facility] [phone] * (ABNORMAL) EXT Complete Metabolic Panel, Blood (10/11/2023) EXT Albumin 3.9 3.3 - 5.0 [facility]) EXT BUN (Blood Urea Nitrogen) 77(A) 7 - 30 [facility]) EXT Calcium, Total 8.8 8.4 - 10.6 [facility]) EXT Chloride 113 96 - 114 [facility]) EXT CO2 18(A) 20 - 32 [facility]) EXT Creatinine 2.9(A) 0.5 - 1.5 [facility]) EXT Glucose 102 60 - 115 [facility]) EXT Potassium 5.0 3.6 - 5.1 [facility]) EXT Sodium 138 135 - 149 [facility]) Blood (Blood, Venous) 10/11/2023 Historical Provider LAB BLOOD NON ADD-ON [facility] [address] [place] [address], [facility] [phone] documented in this encounter Visit Diagnoses Not on filedocumented in this encounter Care Teams Can Slider Relationship Specialty Start Date End Date Elsewhere, Pcp PCP - General Internal Medicine 08/04/19 documented as of this encounter
--- OUTSIDE RECORDS SUMMARY | 2023-10-29 10:06 | XMS_ITS | Encounter Summary ---
Author Organization [facility] Address [address] [place] [address] Care Team Providers Care Health Care Coach Name Role Phone Elsewhere, Pcp Primary Care Provider Unavailabl e Encounter Details Date Type Department Care Team (Late st Contact Info) Description 07/27/2023 Clinical Communication Division of Nephrology and Hypertension in [place], [place] [address] [place] [phone] Soheila Blake M.D., Ph.D. [address] [place] [phone] Social History Tobacco Use Types Packs/Day Years [...] Encounter - Soheila Blake M.D., Ph.D. - 07/27/2023 4:06 PM CST No growth in urinalysis. No antibiotic treatment required. Rebecca Kirk M.D., Ph.D. [employer] WORKER documented in this encounter Plan of Treatment Not on file documented as of this encounter Visit Diagnoses Not on filedocumented in this encounter Care Teams Health Care Coach Relationship Specialty Start Date End Date Elsewhere, Pcp PCP - General Internal Medicine 08/04/19 documented as of this encounter
--- OUTSIDE RECORDS SUMMARY | 2023-10-29 10:06 | XMS_ITS ---
Author Organization [facility] Address [address] [place] [address] Care Team Providers Care Clip Wrapper Name Role Phone Unavailable Unavailable Unavailable Surgery Details Not on file Complications Check Surgery Details section. Procedure Estimated Blood Loss Check Surgery Details section. Procedure Findings Check Surgery Details section. Procedure Specimens Taken Check Surgery Details section.
--- OUTSIDE RECORDS SUMMARY | 2023-10-29 10:06 | XMS_ITS | Referral Summary ---
Author Organization [facility] Address [address] [place] [address] Care Team Providers Care Driver Lifter Of Sanitation Truck Name Role Phone Elsewhere, Pcp Primary Care Provider Unavailabl e Source Comments Patient records contain information from all sites at [facility]. For routine questions regarding patient records, call [phone] during business hours, M-F 8:00 AM - 5:00 PM Central Time. Record requests for emergency care only can be directed to [phone] at any time.[facility] Encounters Date Type Department Care Team Description 10/13/2023 11:30 AM CDT External Outreach Division of Nephrology and Hypertension in [place], [place] [address] [place] [address] Soheila Blake M.D., Ph.D. Chronic Kidney Disease Stage 4 Glomerular Filtration Rate 15-29 (HCC) (Primary Dx); Hypertension Essential Primary; Proteinuria; Hyperkalemia; Mass Kidney 10/12/2023 Clinical Communication Division of Nephrology and Hypertension in [place], [place] [address] [place] [address] Lary Nguyen R.N. from Last 3 Months Allergies Active Allergy Reactions Criticality Noted Date Comments Benazepril Headache 10/12/2005 Influenza Virus Vaccines Nausea Only 11/27/2004 Axtrgza-Bda-Yeh Reductase Inhibitors Other (see comments) 12/14/2016 rush [...] Essential Benign Atherosclerotic Heart Diseas e Of [place] Coronary Artery Without Angina Pectoris 09/29/2016 Overview: Coronary Artery Disease (CAD) [place] Vessel Hypercholesterolemia 09/29/2016 Lymphedema 09/29/2016 Overview: right arm Resolved Problems Problem Noted Date Diagnosed Date Resolved Date [employer] Media Specialist Anticoagulant Treatment [Z79.01] 05/31/2017 06/29/2017 Monitoring For Therapeutic D rug Therapy [Z51.81] 05/31/2017 06/29/2017 Flutter Atrial 03/01/2017 04/21/2018 Chronic Kidney Disease NOS 10/28/2016 1 06/21/2017 Overview: Chronic Kidney Disease (CKD) NOS Per External Records Obesity Body Mass Index 30-39.9 Adult 10/28/2016 04/21/2018 Overview: Per External Records Diabetes Mellitus Type 2 Wit h Other Circulatory Complication 10/15/2003 08/29/2019 Social History Tobacco Use Types Packs/Day Years [...] T Respiratory Rate 16 04/20/2018 12:33 PM LINOLEUM MECHANIC Oxygen Saturation 100% 11/18/2018 3:52 PM CDT Inhaled Oxygen Concentration - - Weight 103 kg (227 lb 15.3 oz) 07/26/2019 9:00 A M LINOLEUM MECHANIC Height 163 cm (5' 4.17) 07/26/2019 9:00 AM LINOLEUM MECHANIC Body Mass Index 38.92 07/26/2019 9:00 AM LINOLEUM MECHANIC Plan of Treatment Not on file Medical Devices Implanted Type Area Curing Finisher Device Identifier Shelf Expiration Date Model / Serial / Lot Cardiac Stent Cardiac Stent Heart Procedures Procedure Name Priority Date/Time Associated Diagnosis Comments EXTP COMPLETE BLOOD COUNT, BLOOD Routine 10/11/2023 EXTP URINALYSIS WITH MICROSCOPY, URINE Routine 10/11/2023 EXTP COMPLETE METABOLIC PANEL, BLOOD Routine 10/11/2023 EXTI LIPID PANEL W REFLEX MEASURED LDL Routine 05/30/2020 2:16 PM LINOLEUM MECHANIC ALBUMIN, RANDOM, U Routine 04/20/2018 1: 56 PM LINOLEUM MECHANIC Diabetes Mellitus Type 2 (HCC) HCV AB SCRN W/REFLEX TO HCV PCR, S Routine 04/20/2018 1:43 PM LINOLEUM MECHANIC Wellness Screening HEMOGLOBIN A1C, B Routine 04/20/2018 1:4 3 PM LINOLEUM MECHANIC Diabetes Mellitus Type 2 (HCC) from Last 3 Months or Most Recently Relevant to Health Maintenance Results * (ABNORMAL) EXT Urinalysis with Microscopy, Urine (10/11/2023) EXT Appearance, Urine clear [facility]) EXT Glucose Qualitative, Urine Negative Negative [facility] EXT Ketones, POCT, Urine Negative Negative [facility]) EXT Protein, Urine 1+ [facility]) EXT Nitrite, Urine Negative Negative [facility] EXT Bilirubin, Urine Negative Negative, None detected [facility] EXT Specific [place], POCT, Urine 1.02 1.000 - 1.030 [facility] EXT pH, Random, Urine 5.5 5.0 - 8.5 [facility]) EXT Urobilinogen, Urine 0.2 1.0, 0.2, Unable to interpret due to interfering substances [facility] EXT Leukocyte Esterase, Urine 2+(A) Negative [facility]) Urine (Urine, Voided) 10/11/2023 Historical Provider LAB URINE ORDERABLES Performing Organization Address City/State/[facility] Co de Phone Number [facility]) [address] [place] [address], [facility] [phone] * (ABNORMAL) EXT Complete Metabolic Panel, Blood (10/11/2023) EXT Albumin 3.9 3.3 - 5.0 [facility]) EXT BUN (Blood Urea Nitrogen) 77(A) 7 - 30 [facility]) EXT Calcium, Total 8.8 8.4 - 10.6 [facility]) EXT Chloride 113 96 - 114 [facility]) EXT CO2 18(A) 20 - 32 [facility] EXT Creatinine 2.9(A) 0.5 - 1.5 [facility]) EXT Glucose 102 60 - 115 [facility]) EXT Potassium 5.0 3.6 - 5.1 [facility]) EXT Sodium 138 135 - 149 [facility] Blood (Blood, Venous) 10/11/2023 Historical Provider LAB BLOOD NON ADD-ON [facility]) [address] [place] [address], [facility] [phone] * (ABNORMAL) EXT Complete Blood Count, Blood (10/11/2023) EXT Hemoglobin 11.0(A) 12.0 - 16.0 [facility]) EXT Hematocrit 33 33.0 - 51.0 [facility]) EXT RBC 3.61(A) 4.00 - 5.20 [facility]) EXT MCV 91 80 - 100 [facility]) Blood (Blood, Venous) 10/11/2023 Historical Provider LAB BLOOD NON ADD-ON [facility]) [address] [place] [address], [facility] [phone] * (ABNORMAL) Microalbumin, Random, Urine (04/20/2018 1:56 PM LINOLEUM MECHANIC) Microalbumin 1769.6 mg/L 04/20/2018 2:39 PM LINOLEUM MECHANIC [facility] Creatinine 87 mg/dL 04/20/2018 2:39 PM LINOLEUM MECHANIC [facility] Albumin/Creatinin e Ratio 2034(H) <25 mg/g 04/20/2018 2:39 PM LINOLEUM MECHANIC [facility] Urine (Urine, Clean Catch) 04/20/2018 1:56 PM LINOLEUM MECHANIC 04/20/2018 1:56 PM LINOLEUM MECHANIC Javier Harmon M.D., Ph.D. LAB URINE ORDER AJ Performing Organization Address City/[facility]/ZIP Co de Phone Number [facility] [address] * HCV Ab Scrn w/Reflex to HCV PCR, Serum (04/20/2018 1:43 PM LINOLEUM MECHANIC) Pathologist [facility] HCV Ab Screen, S Nonreactive Nonreactive 04/21/2018 8:25 AM LINOLEUM MECHANIC [facility] Blood (Blood, Venous) 04/20/2018 1:43 PM LINOLEUM MECHANIC 04/20/2018 10:02 PM LINOLEUM MECHANIC Narrative [facility] - 04/21/2018 8:25 AM LINOLEUM MECHANIC Specimen Information: Specimen ID: [id number] Specimen Type: Blood Specimen Collection Start Date: 04/20/2018 ??1:43 PM Specimen Received Date: 04/20/2018 10:02 PM Specimen ID: [id number] Specimen Type: Blood Specimen Collection Start Date: 04/20/2018 ??1:43 PM Specimen Received Date: 04/20/2018 10:02 PM Javier Harmon M.D., Ph.D. LAB MICROBIOLOG Y - BLOOD ORDERABLES [facility] [address] [place] [address] * (ABNORMAL) Hemoglobin A1c (04/20/2018 1:43 PM LINOLEUM MECHANIC) Hemoglobin A1c, B 7.4(H) 4.2 - 5.6 % 04/20/2018 2:08 PM LINOLEUM MECHANIC [facility] Comment: Hemoglobin A1c values greater than or equal to 6.5 percent are diagnostic for diabetes mellitus. ??Diagnosis should be confirmed by repeat testing. ??In diabetic patients, HbA1c goals should be discussed with healthcare provider. Blood (Blood, Venous) 04/20/2018 1:43 PM LINOLEUM MECHANIC 04/20/2018 1:43 PM LINOLEUM MECHANIC Javier Harmon M.D., Ph.D. LAB BLOOD ADD-O N [facility] [address] [place] [id number], [facility] from Last 3 Months or Most Recently Relevant to Health Maintenance Care Teams Driver Lifter Of Sanitation Truck Relationship Specialty Start Date End Date Elsewhere, Pcp PCP - General Internal Medicine 08/04/19
--- OUTSIDE RECORDS SUMMARY | 2023-10-29 10:06 | XMS_ITS | Encounter Summary ---
Author Organization [facility] Address [address] [place] [address] Care Team Providers Care Dietary Aide Cook Name Role Phone Elsewhere, Pcp Primary Care Provider Unavailabl e Reason for Visit * Appointment Request (Routine) - Closed Specialty Diagnoses / Procedures Referred By Contac t Referred To Contact Nephrology and Hypertension Referral ID Status Reason Start Date Expiration Date Visits Re quested Visits Authorized [id number] Closed 09/02/2023 09/01/2024 1 1 Encounter Details Date Type Department Care Team (Latest Contact Info) Description 10/13/2023 11:30 AM CDT External Outreach Division of Nephrology and Hypertension in [place], [place] [address] [place] [address] Soheila Blake M.D., Ph.D. [address] [place] [address] Chronic Kidney Disease Stage 4 Glomerular Filtration Rate 15-29 (HCC) (Primary Dx); Hypertension Essential Primary; Proteinuria; Hyperkalemia; Mass Kidney Social History Tobacco Use Types Packs/Day Years [...] on file documented as of this encounter Progress Notes * Soheila Blake M.D., Ph.D. - 10/13/2023 11:30 AM CDT PROGRESS NOTE SUBJECTIVE CHIEF COMPLAINT / REASON FOR VISIT Follow up CKD 4 management Right upper pole kidney mass [place] [facility] Outreach Visit Location: [facility] HISTORY OF PRESENT ILLNESS Nevin Velez is a 68 y.o. female who is seen for follow up. She has longstanding hypertension, on lisinopril and type 2 diabetes. BP is at goal at home, ranging in the 120-130s/80s. In clinic is usually higher, likely white coat hypertension. Proteinuria that has been improving over time. She has been eating healthier, low salt diet. Patient's MRI confirmed solid mass measuring 1.7 cm on the right upper pole of kidney. She met withUrology and recommended surveillance. She has a follow up with them in February [address] scan. Patient has not noticed any lightheadedness, dizziness, vision changes, diaphoresis, chest pain, difficulty breathing, or edema. Patient has not noticed any changes in urinary habits. No hesitancy tourinate, no difficulty to urinate. OBJECTIVE BP 122/58 Pulse 56 DIAGNOSTICS I have reviewed available labs in detail with patient. ASSESSMENT / PLAN #1 Hypertension Essential Primary #2 Chronic Kidney Disease (CKD), Stage 3b Glomerular Filtration Rate (GFR) 30 To 44 (HCC) #3 Diabetes Mellitus Type 2 With Diabetic Chronic Kidney Disease Hyperglycemic (HCC) #4 Hyperkalemia #5 Right kidney solid mass Patient returns for follow up. Kidney function has a slightly decline with eGFR at 17. Moderate proteinuria, which has been trending down currently in the 300s range. She presents hematuria and significant pyuria 20-50 WBCs, plus clumps. She is asymptomatic. Urine culture ruled out UTI. UA findings likely associated with renal mass. She is following with Urology regarding her renal mass. I offered to repeat image in December (6 months after MRI image) but she prefers to wait until February when she meets with Urology for follow up. Mild metabolic acid-base disorder, we will recheck bicarbonate in next visit and if it remains low-we will start supplementation. PTH is elevated due to secondary hyperparathyroidism, vitamin D pending. If low, plan to start supplementation. No changes to BP meds, patient to continue to check BP at home. She will bring her BP monitor device to next visit. Unable to refer to transplant evaluation due to active surveillance of solid mass on right kidney. Return to clinic in 3 months Rebecca Kirk M.D., Ph.D. documented in this encounter Plan of Treatment Not on file documented as of this encounter Visit Diagnoses Diagnosis Chronic Kidney Disease Stage 4 Glomerular Filtration Rate 15-29 (HCC)- Primary Hypertension Essential Primary Proteinuria Hyperkalemia Mass Kidney documented in this encounter Care Teams Dietary Aide Cook Relationship Specialty Start Date End Date Elsewhere, Pcp PCP - General Internal Medicine 08/04/19 documented as of this encounter
--- OUTSIDE RECORDS SUMMARY | 2023-10-29 10:06 | XMS_ITS | Clinical Summary ---
Author Organization [facility] Address [place], [place] [address] Care Team Providers Care Associate Financial Planner Name Role Phone Srinivas Demarco MD Primary Care Provider [phone] Allergies Active Allergy Reactions Criticality Noted Date Comments Benazepril Headache 10/12/2005 Influenza Virus Vaccines Nausea Only 11/27/2004 Olmesartan Hyperkalemia 08/12/2019 Imlmcpj-Nnu-Ain Reductase Inhibitors *Unknown 12/14/2016 Tolerating Atorvastatin as of 09/14/2019 Medications Medication Sig Dispensed Refills Start Date End Date Status coQ10, ubiquinol, 100 mg cap Take 1 capsule by mouth once daily. Active acetaminophen (TYLENOL EXTRA STRENGTH) 500 mg tablet Take 1,000 mg by mouth every 6 hours if needed (muscle pain, cramping). Max acetaminophen dose: 4000mg in 24 hrs. Active insulin aspart U-100 (NOVOLOG) 100 unit/mL (3 mL) solution for injection Inject subcutaneous. Dose per carbs. Usually 3-5 units BID WM, and rarely extra dose with high calorie meal midday Active aspirin chewable 81 mg chewable tabletIndications: Coronary artery disease, angina presence unspecified, unspecified vessel or lesion type, unspecified whether [place] or transplanted heart Take 1 tablet by mouth once daily. 90 tablet 3 08/15/2019 Active nitroglycerin (NITROSTAT) 0.4 mg sublingual tabletIndications: Coronary artery disease, angina presence unspecified, unspecified vessel or lesion type, unspecified whether [place] or transplanted heart Place 1 tablet under [...] (5,000 mcg) by mouth. 0 09/04/2020 Active Vcyez-0-HEF-EPA-Fi sh Oil (Fish Oil) 1,200 (144-216) mg capsule Take by mouth. 0 09/04/2020 Active medication order composer Beet extract 3 tabs daily 0 09/04/2020 Active cyanocobalamin (VITAMIN B12) 1,[address] under the tongue once daily. 0 09/04/2020 Active isosorbide mononitrate (IMDUR) 60 mg extended release tablet 24 hourIndications:HT N (hypertension),Cor onary artery disease involving [place] coronary artery of [place] heart with unstable angina pectoris (HC) TAKE TWO TABLETS BY MOUTH EVERY DAY 60 tablet. 09/08/2020 Active HYDROcodone-acetam inophen (NORCO) 5-325 mg per tablet States takes as needed 09/25/2020 Active furosemide (LASIX) 20 mg tabletIndications: [...] EVERY DAY IN THE EVENING. 30 Tablet 01/21/2023 Active Active Problems Problem Noted Date [...] infarction (NSTEMI) 08/17/2019 09/04/2020 Hyperkalemia 08/14/2019 02/13/2021 CHARYL (acute kidney injury) Chronic kidney disease, stage III (moderate) 09/04/2020 ATN (acute tubular necrosis) 09/04/2020 Family History Medical History Relation Name Comments [...] Comments Blood Pressure 138/80 05/07/2023 3:23 PM AUDIT SPECIALIST Pulse 57 05/07/2023 3:23 PM AUDIT SPECIALIST Temperature 36.6 ??C (97.9 ??F) 01/09/2022 11:43 PM C DT Respiratory Rate 16 01/30/2022 1:20 PM CDT Oxygen Saturation 99% 05/07/2023 3:23 PM AUDIT SPECIALIST Inhaled Oxygen Concentration - - Weight 86.6 kg (191 lb) 01/30/2022 1:20 PM CDT Height 162.6 cm (5' 4) 01/09/2022 11:43 PM CDT Body Mass Index 32.79 01/09/2022 11:43 PM CDT Plan of Treatment Health Maintenance Due Date Last Done Comments Pneumococcal series for age 65+ (1 of [...] day) for age 18+ 09/14/2020 0 09/15/2019 COVID-19 vaccine series (2022- season) 2023 Influenza for age 65+ 01/23/2024 Lipids for age 45-75 05/30/2025 05/30/2020, 08/12/19 20 Procedures Procedure Name Priority Date/Time Associated Diagnosis Comments LIPID PANEL W REFLEX MEASURED LDL Routine 05/30/2020 2:16 PM AUDIT SPECIALIST Coronary artery disease involving [place] coronary artery of [place] heart with unstable angina pectoris (HC) from Last 3 Months or Most Recently Relevant to Health Maintenance Results * (ABNORMAL) LIPID PANEL W REFLEX MEASURED LDL (05/30/2020 2:16 PM AUDIT SPECIALIST) CHOLESTEROL,TOTAL 330(H) 100 - 199 mg/dL 05/30/2020 7:11 PM AUDIT SPECIALIST [facility] TRIGLYCERIDES 222(H) <150 mg/dL 05/30/2020 7:[address] [facility] [employer] [facility] HDL CHOLESTEROL 52 >40 mg/dL 7:[address] [facility] [employer] [facility] NON-HDL CHOLESTEROL 278(H) <145 mg/dl 05/30/2020 7:[address] [facility] [employer] [facility] CHOL/HDL RATIO 6.35(H) <4.50 05/30/2020 7:11 PM AUDIT SPECIALIST [facility] LDL CHOLESTEROL 234(H) <=130 mg/dL 05/30/2020 7:[address] [facility] [employer] [facility] PROVIDER ORDERED STATUS RANDOM 05/30/2020 7:[address] [facility] [employer] [facility] Blood BLOOD SPECIMEN / Unknown Venipuncture / Unknown 05/30/2020 2:16 PM AUDIT SPECIALIST 05/30/2020 2:17 PM AUDIT SPECIALIST Emily Green MD CHEMISTRY [facility] [address] [place] [address], from Last 3 Months or Most Recently Relevant to Health Maintenance Advance Directives * Full Code (Latest Code Status on File) Date Activated Date Inactivated Comments 08/12/2019 12:58 AM 08/20/2019 4:14 PM Care Teams Associate Financial Planner Relationship Specialty Start Date End Date Srinivas Demarco MD [address] [place] [address] PCP - General Family Practice 09/04/20
== END 2023-10-11 10:16 | disposition home or self-care (01) ==
LOC: NFLDREF 10-29 10:04
PROVIDERS: PCP Family Medicine; Referring Provider Family Medicine; Visit Provider Internal Medicine Nephrology
DX: E11.9 Type 2 diabetes mellitus without complications (principal); I10 Essential (primary) hypertension; N18.9 Chronic kidney disease, unspecified; Z79.4 Long term (current) use of insulin
CPT/HCPCS: 80069; 82043; 82306; 82570; 83970; 84550; 87086

== ENCOUNTER 2024-10-01 21:46 | Outpatient (CLI) | payer MEDICARE, SELFPAY | END 2024-10-01 21:47 | disposition home or self-care (01) | LOC: AMB 10-02 15:31 | PROVIDERS: PCP Family Medicine; Visit Provider Family Medicine | DX: R41.82 Altered mental status, unspecified (principal) | CPT/HCPCS: A0425; A0427 ==

== ENCOUNTER 2024-10-01 22:13 | Emergency (ER) | payer MEDICARE, SELFPAY ==
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
--- OUTSIDE RECORDS SUMMARY | 2024-10-01 22:15 | XMS_ITS | Data Portability ---
Author Organization [place] [facility] Address [address] [place] [address] Care Team Providers Care Public Policy Analyst Name Role Phone JANAY HOWELL Referring Provider Assessment No assessment recorded. Plan of Treatment Reminders Order Date Submit Date Provider Last Modified By Organization Details Last Modified Time Details Appointments None recorded. Lab None recorded. Referral None recorded. Procedures None recorded. Surgeries None recorded. Imaging CT, abdomen, w/wo contrast 2023 [email or web address] [place] [address] Radiology, [address] [facility], [place], [address], 16:58:47 Medication Orders None recorded. Patient TargetsNo targets recorded. Patient InstructionsNo instructions recorded. Reason for Referral None Reported. Procedures Surgical History Date Name Laterality Status Provider Name and Address Organization Details Recorded Time Total Hysterectomy completed Jassi Diego MD [address], [place], [address], [facility] 08/26/2023 15:57:05 Imaging Results None recorded. Procedure Notes None recorded. Medical Equipment None Reported. Allergies No known drug allergies Medications Name Sig Start Date Stop Date Status Note LastModified by Organization Details LastModified Time metoprolol succinate ER 50 mg tablet,extend ed release 24 hr 08/25 completed Not Available Not Available Not Available hydrocodone 5 mg-acetaminop hen 325 mg tablet active Not Available Not Available Not Available lisinopril 20 mg tablet active Not Available Not Available No t Available amlodipine 5 mg tablet 08/25 completed Not Available Not Available Not Available omeprazole 40 mg capsule,delay ed release active Not Available Not Available N ot Available aspirin 81 mg tablet,delaye d release Take 1 tablet every day by oral route. active Not Available Not Available No t Available isosorbide mononitrate ER 60 mg tablet,extend ed release 24 hr active Not Available Not Available Not Available amlodipine 10 mg tablet active Not Available Not Available No t Available lisinopril 10 mg tablet TAKE 1 TABLET BY MOUTH ONCE DAILY 08/25 completed Not Available Not Available Not Available nitroglycerin 0.4 mg sublingual tablet active Not Available Not Available Not Available lisinopril 5 mg tablet 08/25 completed Not Available Not Available Not Available furosemide 20 mg tablet active Not Available Not Available No t Available metoprolol succinate ER 25 mg tablet,extend ed release 24 hr active Not Available Not Available Not Available Vitals Date Recorded Body height Body mass index (BMI) Body weight Provider Name and Address Organization Details Last Updated DateTime 08/26/2023 160.02 cm 32.1 kg/m2 20105.22 g Jassi Diego MD [address] [place] [id number] 08/26/2023 15:51:25 Social History Question Answer Notes LastModified by Organizat ion Details LastModified Time Tobacco Smoking Status Never Smoker Jassi Diego MD [address] [place] [address], [phone] 08/26/2023 15:56:05 What Is Your Level Of Alcohol Consumption? Occasional Information not available 08/26/2023 What Was The Date Of Your Most Recent Tobacco Screening? 08/26/2023 Information not available 08/26/2023 How Many Days In The Past Year Have You Consumed 4 Or More Drinks? 0 Information not available 08/26/2023 Sex: Unknown Functional Status None recorded. Mental Status None recorded. Family History Relationship Description Onset Age of this Age Resolved Age Notes LastModified by Organization Details LastModified Time Father Family history of Hypertension [email or web address] Not available 08/2023 15:55:13 Medical History Condition Response Diabetes Y Bleeding Disorder N High Blood Pressure Y Kidney Stones N High Cholesterol N GERD/Acid Reflux Y Heart Disease Y Cancer Y Lung Disease N Depression N Gynecological HistoryNo gynecological history recorded. Obstetrics History GPAL:G 0 P 0 0 0 0 Immunizations Vaccine Type Date Status Note Provider Nam e and Address Organization Details Recorded Time Tdap 07/23/2020 completed Jassi Diego MD [address], [place], [address], [facility] 08/26/2023 15:52:02 Past Encounters Encounter ID Performer Location Encounter Start Date Encounter Closed Date Diagnosis/Indication Diagnosis SNOMED-CT Code Diagnosis ICD10 Code Diagnosis Note [id number] Jassi Diego MD [facility] [address] [place] [address] 08/26/2023 15:33:36 08/27/2023 10:57:14 Renal mass [id number] N28.89 We discussed the A guidelines for small renal masses and the options include: surveillan ce, robotic partial nephrectom y or thermal ablation. After a thorough discussion of the risks and benefits, the patient would like to proceed with surveillan ce. I will obtain a CT scan in 6 months. We could do a VV after that. Health Concerns Section Related Observation LastModified by Organization Detai ls LastModified Time None Recorded Concern Status LastModified by Organization Details LastModified Time None Recorded Advance Directives Directive None Recorded Payers Insurance Date Sequence Insurance Name Policy Number Policy Beltran Covered Member ID Beltran Member ID Guarantor Name 08/26/2023 1 MEDICARE B-[place]: [employer] Nevin Velez [id number] Nevin Velez Notes Date Note Type Note Provider Name and Address Organization Details Recorded Time 08/26/2023 text/html Referred for a 1.7cm renal mass; right side. This was an incidental finding on a CT scan or abdominal pains, which have resolved. She lost her and has been in grief but is getting better. She has a h/o endometrial cancer treated which was treated with surgery and radiation. This was over 20 years ago at [facility]. Jassi Diego MD [address], [place], [address], [facility] 08/26/2023 16:55:09 OBGyn Episode No OBEpisode recorded.
--- OUTSIDE RECORDS SUMMARY | 2024-10-01 22:15 | XMS_ITS | Clinical Summary ---
Author Organization [facility] Address [address] [place] [id number] Care Team Providers Care Hand Umbrella Tipper Name Role Phone Srinivas Demarco MD Primary Care Provider [phone] Allergies Active Allergy Reactions Criticality Noted Date Comments Benazepril Headache 10/12/2005 Influenza Virus Vaccines Nausea Only 11/27/2004 Olmesartan Hyperkalemia 08/12/2019 Zlzlycp-Ghn-Rmz Reductase Inhibitors *Unknown 12/14/2016 Tolerating Atorvastatin as of 09/14/2019 Medications coQ10, ubiquinol, 100 mg cap Take 1 [...] midday Active aspirin chewable 81 mg chewable tabletIndication s:Coronary artery disease, angina presence unspecified, unspecified vessel or lesion type, unspecified whether tuscarora or transplanted heart Take 1 tablet by mouth once daily. 90 tablet 3 08/14/2019 10:22 AM CDT 08/15/19 20 Active nitroglycerin (NITROSTAT) 0.4 mg sublingual tabletIndication s:Coronary artery disease, angina presence unspecified, unspecified vessel or lesion type, unspecified whether tuscarora or transplanted heart Place 1 tablet under the tongue every 5 minutes if needed for Chest Pain (Up to 3 doses). 25 tablet. 4 04/24/20 20 Active cholecalciferol, Vitamin D3, (VITAMIN D-3) 5,000 unit tab tablet Take 1 tablet by mouth once every other day. 90 tablet 1 06/07/19 21 Active iron, carbonyl (PERFECT IRON) 25 mg iron tab Take by mouth. 0 06/07/19 21 Active medication order composer B complex with vitamin C 1 tablet daily in the pm 0 09/05/19 21 Active biotin 5,000 mcg TbDi Take 1 Tablet (5,000 mcg) by mouth. 0 09/05/19 21 Active Tnlwh-6-YJS-EPA- Fish Oil (Fish Oil) 1,200 (144-216) mg capsule Take by mouth. 0 09/05/19 21 Active medication order composer Beet extract 3 tabs daily 0 09/05/19 21 Active cyanocobalamin (VITAMIN B12) 1,[address] under the tongue once daily. 0 09/05/19 21 Active isosorbide mononitrate (IMDUR) 60 mg extended release tablet 24 hourIndications: HTN (hypertension),C oronary artery disease involving tuscarora coronary artery of tuscarora heart with unstable angina pectoris (HC) TAKE TWO TABLETS BY MOUTH EVERY DAY 60 tablet. 09/09/19 21 Active HYDROcodone-acet aminophen (NORCO) 5-325 mg per tablet States takes as needed 09/26/19 21 Active furosemide (LASIX) 20 mg tabletIndication s:Stage 3b chronic kidney disease (HC),HTN (hypertension),H yperkalemia TAKE ONE TABLET BY MOUTH EVERY MORNING 90 Tablet 3 12/04/19 22 Active medication order composer Garlic with turmeric and cayenne 200 mg BID 0 01/02/20 22 Active Zinc Gluconate 30 mg tablet Take by mouth once daily. 0 01/02/20 22 Active medication order composer Quercetin 500mg once daily 0 01/02/20 22 Active amLODIPine (NORVASC) 5 mg tabletIndication s:HTN (hypertension) Take 2 Tablets (10 mg) by mouth once daily. 180 Tablet 3 01/14/20 22 Active metoprolol succinate (TOPROL XL) 50 mg sustained-releas e tabletIndication s:HTN (hypertension) TAKE 2 TABLETS BY MOUTH ONCE DAILY. 180 Tablet 3 10/30/19 23 Active lisinopriL (PRINIVIL; ZESTRIL) 5 mg tabletIndication s:HTN (hypertension),P roteinuria, unspecified type TAKE ONE TABLET BY MOUTH ONCE EVERY DAY IN THE EVENING. 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 Per pt, s/p radiation and resection History of endometrial cancer 08/16/2019 Hypomagnesemia 08/14/2019 Elevated troponin level not due to acute coronar y syndrome 08/13/2019 Stress-induced cardiomyopathy 08/13/2019 CAD (coronary artery disease) 08/12/2019 Overview (08/19/2019): - 08/19/19: s/p BENEDICT pLAD, s/p BENEDICT dLAD HTN (hypertension) 08/12/2019 HLD (hyperlipidemia) 08/12/2019 Hyperkalemia 08/12/2019 Atrial flutter 08/12/2019 NSTEMI (non-ST elevated myocardial infarction) 0 07/23/2019 Overview (09/14/2019): BENEDICT to prox and distal LAD 08/18/2019 [...] Paying Living Expenses Not on file 05/14/2021 Comments No Sex and Gender Information Value Date Recorded Sex Assigned at Not on file Legal Sex Female 10:44 PM CDT Gender Identity Not on file Sexual Orientation Not on file Obstetrics History Last Filed Vital Signs Vital Sign Reading Time Taken Comments Blood Pressure 138/80 05/07/2023 3:23 PM HOSPITAL MANAGER Pulse 57 05/07/2023 3:23 PM HOSPITAL MANAGER Temperature 36.6 C (97.9 F) 01/09/2022 11:43 PM CDT Respiratory Rate 16 01/30/2022 1:20 PM CDT Oxygen Saturation 99% 05/07/2023 3:23 PM HOSPITAL MANAGER Inhaled Oxygen Concentration - - Weight 86.6 kg (191 lb) 01/30/2022 1:20 PM CDT Height 162.6 cm (5' 4) 01/09/2022 11:43 PM CDT Body Mass Index 32.79 01/09/2022 11:43 PM CDT Plan of Treatment Health Maintenance Due Date Last Done Comments Tdap 1965 Depression screening for age 12+ 1966 Hepatitis C screening for age 18-79 1972 Pneumococcal series for age 50+ (1 of 2 - PCV) 1973 Tetanus booster 1974 Colonoscopy through age 75 10/10/1999 Mammogram for age 45-75 10/10/1999 Zoster (shingles) series for age 50+ (1 of 2) 2004 RSV vaccine for adults or pr egnancy (1 - Risk 60-74 years 1-dose series) 2014 DEXA/DXA scan for age 65+ 10/10/2019 Medicare Wellness for age 65+ 10/10/2019 BMI (ht and wt on same day) for age 18+ 09/14/2020 0 09/15/2019 COVID-19 vaccine series ( - 2023- season) 2024 Influenza Vaccine (Season Ended) 2025 Lipids for age 45-75 05/30/2025 05/30/2020, 08/12/19 20 Procedures Procedure Name Priority Date/Time Associated Diagnosis Comments LIPID PANEL W REFLEX MEASURED LDL Routine 05/30/2020 2:16 PM HOSPITAL MANAGER Coronary artery disease involving tuscarora coronary artery of tuscarora heart with unstable angina pectoris (HC) from Last 3 Months or Most Recently Relevant to Health Maintenance Results * (ABNORMAL) LIPID PANEL W REFLEX MEASURED LDL (05/30/2020 2:16 PM HOSPITAL MANAGER) CHOLESTEROL,TOTAL 330(H) 100 - 199 mg/dL 05/30/2020 7:11 PM HOSPITAL MANAGER [facility] TRIGLYCERIDES 222(H) <150 mg/dL 05/30/2020 7:11 PM HOSPITAL MANAGER [facility] HDL CHOLESTEROL 52 >40 mg/dL 7:11 PM HOSPITAL MANAGER [facility] NON-HDL CHOLESTEROL 278(H) <145 mg/dl 05/30/2020 7:11 PM HOSPITAL MANAGER [facility] CHOL/HDL RATIO 6.35(H) <4.50 05/30/2020 7:11 PM HOSPITAL MANAGER [facility] LDL CHOLESTEROL 234(H) <=130 mg/dL 05/30/2020 7:11 PM HOSPITAL MANAGER [facility] PROVIDER ORDERED STATUS RANDOM 05/30/2020 7:11 PM HOSPITAL MANAGER [facility] Blood BLOOD SPECIMEN / Unknown Venipuncture / Unknown 05/30/2020 2:16 PM HOSPITAL MANAGER 05/30/2020 2:17 PM HOSPITAL MANAGER us Emily Green MD CHEMISTRY Final Result [facility] [address] [place] [address], from Last 3 Months or Most Recently Relevant to Health Maintenance Insurance MEDICARE PART A HB ONLY MEDICARE PB ONLY MEDICARE PART B HB ONLY Advance Directives * Full Code (Latest Code Status on File) Date Activated Date Inactivated Comments 08/12/2019 12:58 AM 08/20/2019 4:14 PM Care Teams Hand Umbrella Tipper Relationship Specialty Start Date End Date Srinivas Demarco MD [address] [place] [id number] PCP - General Family Practice 09/04/20
--- NOTE | 2024-10-01 22:16 | ED.GENADULT ---
HPI - General Adult General Time Seen by Provider: 22:16 Date Seen: 10/01/24 Chief complaint: Anxiety Stated complaint: Shaky Time Seen by Provider: 10/01/24 22:15 Source: patient and EMS Mode of arrival: EMS Limitations: no limitations History of Present Illness HPI narrative: 68-year-old female history of diabetes, chronic kidney disease, coronary disease, sleep apnea presents today with shakiness. patient says that she was speaking on the phone with her sister, the arguing and when patient had of phone she felt shaky, anxious. No chest pain, shortness of breath, lightheadedness, dizziness, nausea, vomiting. Feeling little bit better now. Has not had anything like this before. Related Data Home Medications ?Medication ?Instructions ?Recorded ?Confirmed aspirin 81 mg tablet,delayed 81 mg PO QDAY 11/26/21 10/13/23 release (Adult Low Dose Aspirin) biotin 300 mcg tablet 300 mcg PO QDAY 11/26/21 10/13/23 cholecalciferol (vitamin D3) 125 125 mcg PO QDAY 11/26/21 10/13/23 mcg (5,000 unit) capsule vitamin B complex 1 tab PO QDAY 11/26/21 10/13/23 insulin aspart U-100 100 unit/mL 2 unit subcut BID PRN 04/08/23 10/13/23 subcutaneous solution Previous Rx's ?Medication ?Instructions ?Recorded furosemide 20 mg tablet 20 mg PO QDAY CKD #90 tabs 02/04/23 isosorbide mononitrate 60 mg 120 mg (2 x 60 mg) PO DAILY #180 02/04/23 tablet,extended release 24 hr tabs nitroglycerin 0.4 mg sublingual 0.4 mg sublingual ONCE PRN CAD #25 02/04/23 tablet tabs omeprazole 40 mg capsule,delayed 40 mg PO QDAY #30 caps 02/04/23 release amlodipine 10 mg tablet 10 mg PO QDAY #90 tabs 07/05/23 lisinopril 20 mg tablet 20 mg PO QDAY #90 tabs 08/10/23 hydrocodone 5 mg-acetaminophen 325 1 - 2 tab PO BID PRN pain #10 tabs 08/31/23 mg tablet metoprolol succinate 25 mg 25 mg PO QDAY #30 tabs 10/14/23 tablet,extended release 24 hr Allergies Allergy/AdvReac Type Severity Reaction Status Date / Time olmesartan Allergy Intermediate hyperkalemi Verified 10/13/23 11:28 a benazepril Allergy Unknown Unknown Verified 10/13/23 11:28 HMG-CoA reductase inhibitor Allergy Mild Unknown Uncoded 10/13/23 11:28 Influenza Vaccines Allergy Mild Nausea Uncoded 10/13/23 11:28 [facility] Medical History History of cardioversion (03/01/17) History of malignant neoplasm of uterus (2001) History of pulmonary valve stenosis History of sarcoma of soft tissue (2003) Surgical History History of coronary artery stent placement (07/2015) History of hysterectomy (2001) History of Al[place] Rosa-en-Y gastric bypass (2005) Family History Father Diabetes Sister Diabetes Mother COPD (chronic obstructive pulmonary disease) Social History Narrative: . in October 2021. [facility] On social security disability for endometrial cancer and associated health problems. 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 Moved back from [place] due to 's health issues. She has a daughter and 2 grand children in [place]. Originally from [place]. Walks for exercise. No tobacco, alcohol or recreational drug use. Smoking Status: Former smoker Do you use any of these nicotine containing products: None Second hand tobacco smoke exposure: No How often do you have a drink containing alcohol: monthly or less AUDIT-C Alcohol total score: 1 Non-prescribed substance use: denies use Exam Narrative: Exam Narrative: General: Well-developed and well-nourished, no acute distress Head: Atraumatic and normocephalic Eyes: Pupils are equal reactive, extraocular motions intact, conjunctiva clear ENT: External nose and ears are normal, posterior pharynx without erythema or exudate Neck: No midline cervical tenderness, full spontaneous range of motion the neck, trachea midline, no adenopathy Heart: Regular rate and rhythm no murmurs or thrills Lungs: Clear to auscultation bilaterally without wheezes or crackles Abdomen: Soft, nontender, nondistended with active bowel sounds Musculoskeletal: No tenderness, deformity, or edema Neurologic: Awake, alert, and oriented x3, no gross focal neurologic deficits, cranial nerves intact as tested Psych: Mood and affect are appropriate , denies suicide ideation Skin: No rashes Const: Vital Signs, click to edit/add: Vital Signs - 24 hr 10/01/24 22:22 Temperature 97.5 F L Pulse Rate [Right Radial] 96 Blood Pressure [Ri ght Upper Arm] 192/100 H Pulse Oximetry 100 Oxygen Delivery Me thod Room Air Course Course ED Course: Reviewed prior medical records, history of diabetes although patient says she is not currently taking any medications for this, also history of hypertension hyperlipidemia. Patient tells me she is not taking any medications currently. Patient presents today with feeling shaky, anxious, and overwhelmed after arguing with her sister on the phone. No chest pain, palpitations, lightheadedness, dizziness, nausea, vomiting. Feels better now. Labs are ordered along with EKG although symptoms are most consistent with acute anxiety /stress reaction. EKG is independently interpreted by me performed at 10:50 p.m. demonstrates sinus rhythm with PVCs, rate 86, QTC 43, NM 170, no acute ischemic changes. No prior for comparison. Reevaluation(s) Time of Reevaluation #1: 23:45 Reevaluation #1: Labs and bili interpreted by me with normal CBC, basic panel creatinine 2.6 which is stable for the patient, otherwise normal, normal magnesium. Patient stable for discharge with outpatient follow-up. Vital Signs Vital signs: Initial Vital Signs Temperature 97.5 F L 10/01/24 22:22 Temperature Source Temporal Artery Scan 10/01/24 22:22 Pulse Rate 96 10/01/24 22:22 Pulse Rhythm Regular 10/01/24 22:22 Blood Pressure 192/100 H 10/01/24 22:22 Blood Pressure Mean 130 H 10/01/24 22:22 Pulse Oximetry 100 10/01/24 22:22 Oxygen Delivery Method Room Air 10/01/24 22:22 Vital Signs Temperature 97.5 F L 10/01/24 22:22 Pulse Rate 96 10/01/24 22:22 Blood Pressure 192/100 H 10/01/24 22:22 Pulse Oximetry 100 10/01/24 22:22 Oxygen Delivery Method Room Air 10/01/24 22:22 Temperature 97.5 F L 10/01/24 22:22 Pulse Rate 96 10/01/24 22:22 Blood Pressure 192/100 H 10/01/24 22:22 Pulse Oximetry 100 10/01/24 22:22 Oxygen Delivery Method Room Air 10/01/24 22:22 Medical Decision Making Lab Data Labs: Lab Results 10/01/24 Range/Units 23:10 WBC 6.04 (4.50-11.00) K/uL RBC 3.62 L (4.00-5.20) m/uL Hgb 11.1 L (12.0-16.0) gm/dL Hct 33.4 (33.0-51.0) % MCV 92 (80-100) fL MCH 31 (26-34) pg MCHC 33 (32-36) gm/dL RDW Coeff of Alissa 12.3 (11.5-15.5) % Plt Count 260 (140-440) K/uL Neut % (Auto) 59.2 (42.0-72.0) % Lymph % (Auto) 22.0 (20-44) % Bandera % (Auto) 12.9 H (0.0-11.0) % Eos % (Auto) 3.0 (0.0-7.0) % Baso % (Auto) 1.7 (0.0-3.0) % Neut # (Auto) 3.58 (1.7-7.0) K/uL Lymph # (Auto) 1.33 (0.90-2.90) K/uL Bandera # (Auto) 0.80 (0.00-0.90) K/UL Eos # (Auto) 0.18 (0.00-0.50) K/uL Baso # (Auto) 0.10 (0.00-0.30) K/uL Abs Immat Gran (auto) 0.07 (0.00-0.30) K/uL Imm/Tot Granulo (auto) 1.2 % Sodium 139 (135-149) mmol/L Potassium 4.4 (3.6-5.1) mmol/L Chloride 111 (96-114) mmol/L Carbon Dioxide 19 L (20-32) mmol/L Anion Gap 9 (7-15) mEq/L BUN 43 H (7-30) mg/dL Creatinine 2.6 H (0.5-1.5) mg/dL Estimated Creat Clear 16.89 Estimated GFR 19 ml/min Glucose 77 (60-115) mg/dL Calcium 8.2 L (8.4-10.6) mg/dL Magnesium 2.1 (1.5-2.6) mg/dL Discharge Plan Discharge Clinical Impression: Chronic kidney disease, Lymphedema of right upper extremity, Acute reaction to stress Patient Disposition: Home, Self-Care Condition: Stable Instructions: Chronic Kidney Disease (ED), Stress (ED) Additional Instructions: Consider follow-up with therapist or psychiatrist Follow-up with your primary care doctor this week Activity Level: Activity as Tolerated Discharge Diet: Regular Prescriptions: No Action lisinopril 20 mg tablet 20 mg PO QDAY Qty: 90 1RF biotin 300 mcg tablet 300 mcg PO QDAY aspirin [Adult Low Dose Aspirin] 81 mg tablet,delayed release (DR/EC) 81 mg PO QDAY cholecalciferol (vitamin D3) 125 mcg (5,000 unit) capsule 125 mcg PO QDAY vitamin B complex Tablet 1 tab PO QDAY furosemide 20 mg tablet 20 mg PO QDAY Qty: 90 3RF isosorbide mononitrate 60 mg tablet extended release 24 hr 120 mg PO DAILY Qty: 180 3RF nitroglycerin 0.4 mg tablet, sublingual 0.4 mg sublingual ONCE PRN (Reason: CAD) Qty: 25 0RF Rx Instructions: One tablet p.o. Q 5 minutes p.r.n. x3. omeprazole 40 mg capsule,delayed release(DR/EC) 40 mg PO QDAY Qty: 30 11RF insulin aspart U-100 100 unit/mL solution 2 unit subcut BID PRN Rx Instructions: give as directed by sliding scale. Max daily dose of 20u/day. amlodipine 10 mg tablet 10 mg PO QDAY Qty: 90 2RF hydrocodone-acetaminophen 5-325 mg tablet 1 - 2 tab PO BID PRN (Reason: pain) Qty: 10 0RF metoprolol succinate 25 mg tablet extended release 24 hr 25 mg PO QDAY Qty: 30 3RF Follow Up/Referrals: Srinivas Demarco MD [Primary Care Provider] - Stand Alone Forms: [employer] Info Instructions
[2024-10-01 22:22] VITALS: BP 192/100; PULSE 96; TEMP 36.4; O2SAT 100; BMI 36.3
--- OUTSIDE RECORDS SUMMARY | 2024-10-01 23:07 | XMS_ITS | Clinical Summary ---
Author Organization [facility] Address [address] [place] [address] Care Team Providers Care Digital Content Marketing Manager Name Role Phone Srinivas Demarco MD Primary Care Provider [phone] Allergies Active Allergy Reactions Criticality Noted Date Comments Benazepril Headache 10/12/2005 Influenza Virus Vaccines Nausea Only 11/27/2004 Olmesartan Hyperkalemia 08/12/2019 Nvoghbx-Com-Zhd Reductase Inhibitors *Unknown 12/14/2016 Tolerating Atorvastatin as [...] unspecified vessel or lesion type, unspecified whether cahto or transplanted heart Take 1 tablet by mouth once daily. 90 tablet 3 08/14/2019 10:22 AM CDT 08/15/19 20 Active nitroglycerin (NITROSTAT) 0.4 mg sublingual tabletIndication s:Coronary artery disease, angina presence unspecified, unspecified vessel or lesion type, unspecified whether cahto or transplanted heart Place 1 tablet under [...] mcg) by mouth. 0 09/05/19 21 Active Jwxge-5-USQ-EPA- Fish Oil (Fish Oil) 1,200 (144-216) mg capsule Take by mouth. 0 09/05/19 21 Active medication order composer Beet extract 3 tabs daily 0 09/05/19 21 Active cyanocobalamin (VITAMIN B12) 1,[address] under the tongue once daily. 0 09/05/19 21 Active isosorbide mononitrate (IMDUR) 60 mg extended release tablet 24 hourIndications: HTN (hypertension),C oronary artery disease involving cahto coronary artery of cahto heart with unstable angina pectoris (HC) TAKE [...] Comments Blood Pressure 138/80 05/07/2023 3:23 PM BATTERY CHARGER CONVEYOR LINE Pulse 57 05/07/2023 3:23 PM BATTERY CHARGER CONVEYOR LINE Temperature 36.6 C (97.9 F) 01/09/2022 11:43 PM CDT Respiratory Rate 16 01/30/2022 1:20 PM CDT Oxygen Saturation 99% 05/07/2023 3:23 PM BATTERY CHARGER CONVEYOR LINE Inhaled Oxygen Concentration - - Weight 86.6 [...] REFLEX MEASURED LDL Routine 05/30/2020 2:16 PM BATTERY CHARGER CONVEYOR LINE Coronary artery disease involving cahto coronary artery of cahto heart with unstable angina pectoris (HC) from Last 3 Months or Most Recently Relevant to Health Maintenance Results * (ABNORMAL) LIPID PANEL W REFLEX MEASURED LDL (05/30/2020 2:16 PM BATTERY CHARGER CONVEYOR LINE) CHOLESTEROL,TOTAL 330(H) 100 - 199 mg/dL 05/30/2020 7:11 PM BATTERY CHARGER CONVEYOR LINE [facility] TRIGLYCERIDES 222(H) <150 mg/dL 05/30/2020 7:11 PM BATTERY CHARGER CONVEYOR LINE [facility] HDL CHOLESTEROL 52 >40 mg/dL 7:11 PM BATTERY CHARGER CONVEYOR LINE [facility] NON-HDL CHOLESTEROL 278(H) <145 mg/dl 05/30/2020 7:11 PM BATTERY CHARGER CONVEYOR LINE [facility] CHOL/HDL RATIO 6.35(H) <4.50 05/30/2020 7:11 PM BATTERY CHARGER CONVEYOR LINE [facility] LDL CHOLESTEROL 234(H) <=130 mg/dL 05/30/2020 7:11 PM BATTERY CHARGER CONVEYOR LINE [facility] PROVIDER ORDERED STATUS RANDOM 05/30/2020 7:11 PM BATTERY CHARGER CONVEYOR LINE [facility] Blood BLOOD SPECIMEN / Unknown Venipuncture / Unknown 05/30/2020 2:16 PM BATTERY CHARGER CONVEYOR LINE 05/30/2020 2:17 PM BATTERY CHARGER CONVEYOR LINE us Emily Green MD CHEMISTRY Final Result [facility] [address] [place] [address], from Last 3 Months or Most Recently Relevant to Health Maintenance Insurance MEDICARE PART A HB ONLY MEDICARE PB ONLY MEDICARE PART B HB ONLY Advance Directives * Full Code (Latest Code Status on File) Date Activated Date Inactivated Comments 08/12/2019 12:58 AM 08/20/2019 4:14 PM Care Teams Digital Content Marketing Manager Relationship Specialty Start Date End Date Srinivas Demarco MD [address] [place] [id number] PCP - General Family Practice 09/04/20
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
[2024-10-01 23:17] LABS: Basophils Percent Auto 1.7 % (0.0-3.0); Eosinophils Absolute Auto 0.18 K/uL (0.00-0.50); Hematocrit 33.4 % (33.0-51.0); Hemoglobin* 11.1 gm/dL (12.0-16.0); Immature Granulocytes Abs Auto 0.07 K/uL (0.00-0.30); Immature Granulocytes Pct Auto 1.2 %; Lymphocytes Absolute Auto 1.33 K/uL (0.90-2.90); Mean Corpuscular HGB Conc 33 gm/dL (32-36); Mean Corpuscular Hemoglobin 31 pg (26-34); Mean Corpuscular Volume 92 fL (80-100); Monocytes Percent Auto 12.9 % (0.0-11.0); Neutrophils Absolute Auto 3.58 K/uL (1.7-7.0); Neutrophils Percent Auto 59.2 % (42.0-72.0); Platelet Count* 260 K/uL (140-440); RDW Coefficient of Variation % 12.3 % (11.5-15.5); Red Blood Count 3.62 m/uL (4.00-5.20); White Blood Count* 6.04 K/uL (4.50-11.00)
[2024-10-01 23:22] LABS: Slide Review Reflex No
[2024-10-01 23:32] LABS: Chloride* 111 mmol/L (96-114); Potassium* 4.4 mmol/L (3.6-5.1); Sodium* 139 mmol/L (135-149)
[2024-10-01 23:35] LABS: Anion Gap 9 mEq/L (7-15); Blood Urea Nitrogen* 43 mg/dL (7-30); Calcium* 8.2 mg/dL (8.4-10.6); Carbon Dioxide* 19 mmol/L (20-32); Creatinine* 2.6 mg/dL (0.5-1.5); Est. Creatinine Clearance* 16.89; Estimated Glomerular Filt Rate 19 ml/min; Glucose* 77 mg/dL (60-115); Magnesium* 2.1 mg/dL (1.5-2.6)
[2024-10-01 23:49] VITALS: BP 168/68; PULSE 87; RESP 16; O2SAT 100
== END 2024-10-02 00:30 | disposition home or self-care (01) ==
PROVIDERS: Emergency Provider Family Medicine; PCP Family Medicine
DX: N18.9 Chronic kidney disease, unspecified (principal); I89.0 Lymphedema, not elsewhere classified
CPT/HCPCS: 36415; 80048; 83735; 85025; 93005; 99284

== ENCOUNTER 2025-01-11 12:59 | Outpatient (CLI) | payer MEDICARE, SELFPAY | END 2025-01-11 13:00 | disposition home or self-care (01) | LOC: AMB 01-15 10:44 | PROVIDERS: Visit Provider Family Medicine | DX: R07.89 Other chest pain (principal) | CPT/HCPCS: A0425; A0433 ==

== ENCOUNTER 2025-01-11 13:32 | Emergency (ER) | payer MEDICARE, SELFPAY ==
--- OUTSIDE RECORDS SUMMARY | 2025-01-11 13:35 | XMS_ITS | Clinical Summary ---
Author Organization [email or web address] Address [address] [place] [address] Care Team Providers Care Otm Consultant Name Role Phone Srinivas Demarco MD Primary Care Provider [phone] Allergies Active Allergy Reactions Criticality Noted Date Comments Benazepril Headache 10/12/2005 Influenza Virus Vaccines Nausea Only 11/27/2004 Olmesartan Hyperkalemia 08/12/2019 Dmoqudb-Tnt-Wpv Reductase Inhibitors *Unknown 12/14/2016 Tolerating Atorvastatin as [...] unspecified vessel or lesion type, unspecified whether kashia or transplanted heart Take 1 tablet by mouth once daily. 90 tablet 3 08/14/2019 10:22 AM CDT 08/15/19 20 Active Additional Information Patient not taking.Reported on 11/06/2024 nitroglycerin (NITROSTAT) 0.4 mg sublingual tabletIndication s:Coronary artery disease, angina presence unspecified, unspecified vessel or lesion type, unspecified whether kashia or transplanted heart Place 1 tablet under [...] tablet daily in the pm 0 09/05/19 Active biotin 5,000 mcg TbDi Take 1 Tablet (5,000 mcg) by mouth. 0 09/05/19 21 Active Jqmsd-2-JMI-EPA- Fish Oil (Fish Oil) 1,200 (144-216) mg capsule Take by mouth. 0 09/05/19 Active medication order composer Beet extract 3 tabs daily 0 09/05/19 21 Active cyanocobalamin (VITAMIN B12) 1,[address] under the tongue once daily. 0 09/05/19 Active isosorbide mononitrate (IMDUR) 60 mg extended release tablet 24 hourIndications: HTN (hypertension),C oronary artery disease involving kashia coronary artery of kashia heart with unstable angina pectoris (HC) TAKE TWO TABLETS BY MOUTH EVERY DAY 60 tablet. 09/09/19 21 Active Additional Information Patient not taking.Reported on 11/06/2024 HYDROcodone-acet aminophen (NORCO) 5-325 mg per tablet States takes as needed 09/26/19 21 Active furosemide (LASIX) 20 mg tabletIndication s:Stage 3b chronic kidney disease (HC),HTN (hypertension),H yperkalemia TAKE ONE TABLET BY MOUTH EVERY MORNING 90 Tablet 3 12/04/19 22 Active Additional Information Patient not taking.Reported on 11/06/2024 medication order composer Garlic with turmeric and cayenne 200 mg BID 0 01/02/20 22 Active Zinc Gluconate 30 mg tablet Take by mouth once daily. 0 01/02/20 22 Active medication order composer Quercetin 500mg once daily 0 01/02/20 22 Active amLODIPine (NORVASC) 5 mg tabletIndication s:HTN (hypertension) Take 2 Tablets (10 mg) by mouth once daily. 180 Tablet 3 01/14/20 22 Active Additional Information Patient not taking.Reported on 11/06/2024 metoprolol succinate (TOPROL XL) 50 mg sustained-releas e tabletIndication s:HTN (hypertension) TAKE 2 TABLETS BY MOUTH ONCE DAILY. 180 Tablet 3 10/30/19 Active Additional Information Patient not taking.Reported on 11/06/2024 lisinopriL (PRINIVIL; ZESTRIL) 5 mg tabletIndication s:HTN (hypertension),P roteinuria, unspecified type TAKE ONE TABLET BY MOUTH ONCE EVERY DAY IN THE EVENING. 30 Tablet 01/22/20 Active Additional Information Patient not taking.Reported on 11/06/2024 Active Problems Problem Noted Date Diagnosed Date [...] Encounters Date Type Department Care Team Description 01/11/2025 Nurse Triage [facility] [address] [place] [address] Srinivas Demarco MD Chest Pain 01/09/2025 7:10 PM CDT Ancillary Procedure [facility] [id number] [facility] [address] [place] [address] Arrived 01/09/2025 7:05 PM CDT Ancillary Procedure [facility] [address] [facility] [address] [place] [address] Arrived 01/09/2025 6:10 PM CDT Office Visit [facility] [address] [facility] [address] [place] [address] Bethany Dyer PA Fall 01/09/2025 Travel 12/12/2024 Patient Outreach [facility] - Care Management Navigation/[facility] [address] [place] [address] [facility] 11/06/2024 2:05 PM CDT Office Visit [facility] [address] [place] [address] Kalyn Spears PA Foot Problem (Left) 11/06/2024 11:00 AM CDT Ancillary Procedure [facility] [address] [place] [address] 11/06/2024 Travel from Last 3 Months Immunizations Immunization Administration [...] e alcohol) Social Connections Answer Date Recorded Do you often feel lonely or isolated from those around you? 0 11/06/2024 Financial Resource Strain Answer Date R ecorded Difficulty of Paying Living Expenses 2 11/06/2024 Difficulty of Paying Living Expenses 1 11/06/2024 Food Insecurity Answer Date Recorded Do you worry your food will run out before you are able to buy more? 1 11/06/2024 Transportation Needs Answer Date Record ed Does lack of transportation keep you from medica l appointments? 1 11/06/2024 Does lack of transportation keep you from work, meetings or getting things that you need? 1 11/06/2024 Housing Stability Answer Date Recorded What is your housing situation today? 1 11/06/2024 Utilities Answer Date Recorded Do you have trouble paying f or utilities (for example, heat, electricity, water, phone)? 1 11/06/2024 Comments No Sex and Gender Information Value Date Recorded Sex Assigned at Not on file Legal Sex Female 10:44 PM CDT Gender Identity Not on file Sexual Orientation Not on file Obstetrics History Last Filed Vital Signs Vital Sign Reading Time Taken Comments Blood Pressure 180/90 01/09/2025 8:10 PM CDT Pulse 65 01/09/2025 6:32 PM CDT Temperature 36.5 C (97.7 F) 01/09/2025 6:32 PM CDT Respiratory Rate 16 01/09/2025 6:32 PM CDT Oxygen Saturation 99% 01/09/2025 6:32 PM CDT Inhaled Oxygen Concentration - - Weight 87.7 kg (193 lb 4.8 oz) 01/09/2025 6:32 P M CDT Height 162.6 cm (5' 4) 01/09/2022 11:43 PM CDT Body Mass Index 33.18 01/09/2022 11:43 PM CDT Plan of Treatment Upcoming Encounters Date Type Department Care Team (Late st Contact Info) Description 01/19/2025 12:45 PM CDT Office Visit [facility] [address] [place] [address] Lolis Vega, [address] [place] [address] Health Maintenance Due Date Last Done Comments Depression screening for age 12+ 1966 Hepatitis C screening for ag e 18-79 1972 Pneumococcal series for age 50+ (1 of 2 - PCV) 1973 Colonoscopy through age 75 10/10/1999 Mammogram for age 45-75 10/10/1999 Zoster (shingles) series for age 50+ (1 of 2) 2004 RSV vaccine for adults or (1 - Risk 60-74 years 1-dose series) 2014 DEXA/DXA scan for age 65+ 10/10/2019 Medicare Wellness for age 65+ 10/10/2019 BMI (ht and wt on same day) for age 18+ 09/14/2020 09/15/2019 COVID-19 vaccine series ( - 2023- season) 2024 Influenza Vaccine (#1) 2025 Lipids for age 45-75 05/30/2025 05/30/2020, 08/12/2019 Tetanus booster 07/23/2030 07/23/2020 Hepatitis B series for 19+ Aged Out N o longer eligible based on patient's age to complete this topic Procedures Procedure Name Priority Date/Time Associated Diagnosis Comments XR SACRUM AND COCCYX MINIMUM 2 VIEWS STAT 01/09/2025 7:26 PM CDT Back pain without radiation XR SPINE LUMBAR 2 VIEWS STAT 01/09/2025 7:10 PM CDT Back pain without radiation XR FOOT 3 VIEWS LEFT FLOYD 11/06/2024 11:07 AM CDT Foot pain, left LIPID PANEL W REFLEX MEASURED LDL Routine 05/30/2020 2:16 PM RUG RENOVATOR Coronary artery disease involving kashia coronary artery of kashia heart with unstable angina pectoris (HC) from Last 3 Months or Most Recently Relevant to Health Maintenance Results * XR SACRUM AND COCCYX MINIMUM 2 VIEWS (01/09/2025 7:26 PM CDT) Anatomical Region Laterality Modality Pelvis, SACRUM, COCCYX Digital R adiography 01/09/2025 7:57 PM CDT Impressions 01/09/2025 7:57 PM CDT 1. Questionable focal lucency/discontinuity at the sacrococcygeal junction, could be artifactual, however correlation with point tenderness and any history of recent trauma is recommended. 2. Degenerative changes of the lower lumbar spine, sacroiliac joints, and pubic symphysis. Dictated by Pepper Corea MD @ 01/09/2025 7:57:47 PM (Electronically Signed) Narrative 01/09/2025 7:57 PM CDT For Patients: As a result of the Cures Act, medical imaging exams and procedure reports are released immediately into your electronic medical record. You may view this report before your referring provider. If you have questions, please contact your health care provider. INDICATION: Back pain without radiation. TECHNIQUE: Sacrum and coccyx 3 views. COMPARISON: None. FINDINGS: Bones: Suboptimal visualization of the sacrum and coccyx on the AP views. Questionable focal lucency/discontinuity at the sacrococcygeal junction on lateral view. Alignment is normal. Joint spaces: Degenerative changes of the lower lumbar spine, sacroiliac joints, and pubic symphysis. Soft tissues: Vascular calcifications. Surgical clip right pelvis. Procedure Note Pepper Corea MD - 01/09/2025 For Patients: As a result of the Cures Act, medical imagingexams and procedure reports are released immediately into your electronicmedical record. You may view this report before your referring provider.If you have questions, please contact your health care provider. INDICATION: Back pain without radiation. TECHNIQUE: Sacrum and coccyx 3 views. COMPARISON: None. FINDINGS: Bones: Suboptimal visualization of the sacrum and coccyx on the AP views.Questionable focal lucency/discontinuity at the sacrococcygeal junction onlateral view. Alignment is normal. Joint spaces: Degenerative changes of the lower lumbar spine, sacroiliacjoints, and pubic symphysis. Soft tissues: Vascular calcifications. Surgical clip right pelvis. IMPRESSION: 1. Questionable focal lucency/discontinuity at the sacrococcygealjunction, could be artifactual, however correlation with point tendernessand any history of recent trauma is recommended. 2. Degenerative changes of the lower lumbar spine, sacroiliac joints, andpubic symphysis. Dictated by Pepper Corea MD @ 01/09/2025 7:57:47 PM (Electronically Signed) us Seb [facility] Final Re sult * XR SPINE LUMBAR 2 VIEWS (01/09/2025 7:10 PM CDT) Anatomical Region Laterality Modality LUMBAR SPINE Digital Radiogra phy 01/09/2025 7:51 PM CDT Impressions 01/09/2025 7:51 PM CDT 1. No acute findings. 2. Multilevel degenerative spondylosis. Dictated by Pepper Corea MD @ 01/09/2025 7:51:34 PM (Electronically Signed) Narrative 01/09/2025 7:51 PM CDT For Patients: As a result of the Cures Act, medical imaging exams and procedure reports are released immediately into your electronic medical record. You may view this report before your referring provider. If you have questions, please contact your health care provider. INDICATION: Back pain without radiation. TECHNIQUE: Lumbar spine 2 view. COMPARISON: None. FINDINGS: Vertebrae: No sign of acute fracture. Vertebral body heights are maintained. Minimal retrolisthesis of L2 on L3 and L3 on L4. Joints: Multilevel endplate spurring and disc space narrowing most severe at L1- L2 and L2-L3. Lower lumbar facet arthropathy. Soft tissues: Aortic vascular calcifications. Surgical clips in the central abdomen. Procedure Note Pepper Corea MD - 01/09/2025 For Patients: As a result of the Cures Act, medical imagingexams and procedure reports are released immediately into your electronicmedical record. You may view this report before your referring provider.If you have questions, please contact your health care provider. INDICATION: Back pain without radiation. TECHNIQUE: Lumbar spine 2 view. COMPARISON: None. FINDINGS: Vertebrae: No sign of acute fracture. Vertebral body heights aremaintained. Minimal retrolisthesis of L2 on L3 and L3 on L4. Joints: Multilevel endplate spurring and disc space narrowing most severeat L1- L2 and L2-L3. Lower lumbar facet arthropathy. Soft tissues: Aortic vascular calcifications. Surgical clips in thecentral abdomen. IMPRESSION: 1. No acute findings. 2. Multilevel degenerative spondylosis. Dictated by Pepper Corea MD @ 01/09/2025 7:51:34 PM (Electronically Signed) us Seb [facility] Final Re sult * XR FOOT 3 VIEWS LEFT (11/06/2024 11:07 AM CDT) Anatomical Region Laterality Modality FEET, FOOT L Computed Radiogr aphy 11/06/2024 11:5 3 AM CDT Narrative 11/06/2024 11:53 AM CDT For Patients: As a result of the Cures Act, medical imaging exams and procedure reports are released immediately into your electronic medical record. You may view this report before your referring provider. If you have questions, please contact your health care provider. Indication: Left foot pain. Technique: Left foot 3 views Comparison: None Findings: Plantar and posterior calcaneal spurs. Vascular calcifications. Spurring at the midfoot and 1st MTP joint. No acute fracture. Midfoot alignment maintained. Impression: Calcaneal spurs. Degenerative joint disease. Dictated by Puneet Montemayor MD @ 11/06/2024 11:53:59 AM (Electronically Signed) Procedure Note Puneet Montemayor MD - 11/06/2024 For Patients: As a result of the Cures Act, medical imagingexams and procedure reports are released immediately into your electronicmedical record. You may view this report before your referring provider.If you have questions, please contact your health care provider. Indication: Left foot pain. Technique: Left foot 3 views Comparison: None Findings: Plantar and posterior calcaneal spurs. Vascular calcifications. Spurringat the midfoot and 1st MTP joint. No acute fracture. Midfoot alignmentmaintained. Impression: Calcaneal spurs. Degenerative joint disease. Dictated by Puneet Montemayor MD @ 11/06/2024 11:53:59 AM (Electronically Signed) us Kalyn [facility] Final Result * (ABNORMAL) LIPID PANEL W REFLEX MEASURED LDL (05/30/2020 2:16 PM RUG RENOVATOR) CHOLESTEROL,TOTAL 330(H) 100 - 199 mg/dL 05/30/2020 7:11 PM RUG RENOVATOR [facility] TRIGLYCERIDES 222(H) <150 mg/dL 05/30/2020 7:11 PM RUG RENOVATOR [facility] HDL CHOLESTEROL 52 >40 mg/dL 7:11 PM RUG RENOVATOR [facility] NON-HDL CHOLESTEROL 278(H) <145 mg/dl 05/30/2020 7:11 PM RUG RENOVATOR [facility] CHOL/HDL RATIO 6.35(H) <4.50 05/30/2020 7:11 PM RUG RENOVATOR [facility] LDL CHOLESTEROL 234(H) <=130 mg/dL 05/30/2020 7:11 PM RUG RENOVATOR [facility] PROVIDER ORDERED STATUS RANDOM 05/30/2020 7:11 PM RUG RENOVATOR [facility] Blood BLOOD SPECIMEN / Unknown Venipuncture / Unknown 05/30/2020 2:16 PM RUG RENOVATOR 05/30/2020 2:17 PM RUG RENOVATOR us Emily Green MD CHEMISTRY Final Result [facility] [address] [place] [address], [place] from Last 3 Months or Most Recently Relevant to Health Maintenance Insurance MEDICARE PART A HB ONLY MEDICARE PB ONLY MEDICARE PART B HB ONLY Advance Directives * Full Code (Latest Code Status on File) Date Activated Date Inactivated Comments 08/12/2019 12:58 AM 08/20/2019 4:14 PM Care Teams Otm Consultant Relationship Specialty Start Date End Date Srinivas Demarco MD [address] [place] [phone] PCP - General Family Practice 09/04/20
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
[2025-01-11 13:38] VITALS: BP 185/81; PULSE 73; RESP 18; TEMP 36.6; O2SAT 100
[2025-01-11 13:51] VITALS: O2SAT 96
--- NOTE | 2025-01-11 13:51 | CT_ITS ---
Patient: ANDRES HENRIQUEZ Facility:?[facility] RIS Patient ID:?[id number] Site Patient ID:?[id number]. Site :?[id number] Study:?CT-Chest WITHOUT-01/11/2025 3:41:16 PM Ordering Physician:Rebecca Chiu Final Report: INDICATION: Chest pain, shortness of breath, right arm swelling, history of sarcoma TECHNIQUE: CT chest without contrast. COMPARISON: None. FINDINGS: Lungs and pleura: No suspicious nodules or infiltrates. Minimal basilar atelectasis. No pleural effusions, pleural thickening, or pneumothorax. Heart and vasculature: Heart size is normal. Thoracic aorta and pulmonary artery are normal in caliber. Diffuse atherosclerotic calcification and dense coronary artery calcification and/or coronary stents. Mitral annular calcifications. Lymph nodes/mediastinum: No mediastinal, hilar, or axillary adenopathy. Chest wall: Hypoattenuating, peripherally calcified left thyroid nodule measuring up to 1.8 centimeters in size (series 2, image 14). Dystrophic calcification along the right axilla. Upper abdomen: Small hiatal hernia with prior Alma Rosa-en-Y. Bones: No acute or suspicious abnormality. IMPRESSION: 1. No acute findings within the chest or findings to suggest metastatic disease. 2. Left thyroid ultrasound measuring up to 1.8 centimeters in size, which may be further evaluated with dedicated thyroid ultrasound if not previously performed. Please note that all CT scans at this facility use dose modulation, iterative reconstruction, and/or weight-based dosing when appropriate to reduce radiation dose to as low as reasonably achievable. Dictated by Elvia Akhtar MD @ 01/11/2025 4:11:29 PM (Electronic Signature)
--- NOTE | 2025-01-11 14:36 | ED_ITS ---
HPI - General Adult General Date Seen: 01/11/25 Chief complaint: Chest Pain Stated complaint: Chest Pain Time Seen by Provider: 01/11/25 13:42 History of Present Illness HPI narrative: Patient is a 69-year-old here by EMS for evaluation of chest pain which started while she was watching TV earlier today. She says it was located on both sides of her chest, not pleuritic, tight feeling, and relieved by fentanyl per EMS. Right now she is asymptomatic in terms of chest pain. She does not note prior chest pain. She says she has not been to the doctor in a long time because she has been busy taking care of her and mother, both of whom recently. She denied medical history to the paramedics, but review of her medical history shows significant medical problems including diabetes, coronary artery disease status post non STEMI in 2019, obesity, chronic kidney disease, congestive heart failure, hypertension, lymphedema of her right arm, tissue sarcoma, and care refused by patient. Medics did note that her right arm was bigger than the left, when I asked her about this she says it has been like that for a couple of weeks or so, did not mention anything about her prior history of lymphedema in that arm. I asked about prior cardiac history she denied. She told paramedics she did not have diabetes. Her blood sugar for them was elevated at 370 or so. Related Data Home Medications ?Medication ?Instructions ?Recorded ?Confirmed No Known Home Medications 11/14/2410/23 Allergies Allergy/AdvReac Type Severity Reaction Status Date / Time olmesartan Allergy Intermediate hyperkalemi Verified 01/11/25 14:13 a benazepril Allergy Unknown Unknown Verified 01/11/25 14:13 HMG-CoA reductase inhibitor Allergy Mild Unknown Uncoded 01/11/25 14:13 Influenza Vaccines Allergy Mild Nausea Uncoded 01/11/25 14:13 [facility] Medical History History of sarcoma of soft tissue (2003) ?Z85.831 - Personal history of malignant neoplasm of soft tissue (ICD-10) History of pulmonary valve stenosis ?Z86.79 - Personal history of other diseases of the circulatory system (ICD- 10) History of malignant neoplasm of uterus (2001) ?Z85.42 - Personal history of malignant neoplasm of other parts of uterus (ICD-10) History of cardioversion (03/01/17) ?Z98.890 - Other specified postprocedural states (ICD-10) Surgical History History of Alma Rosa-en-Y gastric bypass (2005) ?Z98.84 - Bariatric surgery status (ICD-10) History of hysterectomy (2001) ?Z90.710 - Acquired absence of both cervix and uterus (ICD-10) History of coronary artery stent placement (07/2015) ?Z95.5 - Presence of coronary angioplasty implant and graft (ICD-10) Family History Father Diabetes Sister Diabetes Mother COPD (chronic obstructive pulmonary disease) Social History Narrative: . in October 2021. Lives in [address] [facility] [address]. On social security disability for endometrial cancer and associated health problems. 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 Moved back from [place] due to 's health issues. She has a daughter and 2 grand children in [place]. Originally from [place]. Walks for exercise. No tobacco, alcohol or recreational drug use. Smoking Status: Former smoker Do you use any of these nicotine containing products: None Second hand tobacco smoke exposure: No How often do you have a drink containing alcohol: monthly or less AUDIT-C Alcohol total score: 1 Non-prescribed substance use: denies use Exam Narrative: Exam Narrative: Vital signs reviewed In general, alert, nontoxic elderly woman. She looks comfortable, breathing easily. Head: Normocephalic, atraumatic. Eyes: Sclera clear. Pupils equal and reactive. ENT: Mucous membranes moist. Neck: Supple without adenopathy. Heart: Regular rate and rhythm without murmur. Lungs: Clear. No increased work of breathing, crackles or wheezes. Abdomen: Soft, nontender to palpation. Extremities: Well perfused, pulses intact. She is edema noted of the right arm, there is no erythema, no warmth. On the left arm and to a lesser degree on both legs she has some purpuric lesions. Neurologic: Alert, conversant. Speech fluent, face symmetric. Moves all extremities equally. Skin: Warm, dry well perfused. Affect: Normal. Const: Vital Signs, click to edit/add: Vital Signs - 24 hr 01/11/25 13:38 01/11/25 13:51 01/11/25 15:20 Temperature 98 F 98.7 F Pulse Rate [Right Pulse Oximeter] 73 66 Respiratory Rate 18 18 Blood Pressure [Ri ght Upper Arm] 185/81 H 203/77 H Pulse Oximetry 100 96 100 Oxygen Delivery Me thod Room Air Room Air 01/11/25 17:28 Temperature 97.0 F L Pulse Rate [Right Pulse Oximeter] 62 Respiratory Rate 18 Blood Pressure [Ri ght Upper Arm] 204/74 H Pulse Oximetry 100 Oxygen Delivery Me thod Room Air Course Course ED Course: During my initial conversation with her, she denied really much health history, did not mention that this arm has been swollen seemingly since 2003, mentioned concerned about bug bites causing the swelling, denied cardiac history. Pain was completely relieved by fentanyl. An EKG here shows a sinus rhythm, ventricular rate of 69, she does have some PVCs. No acute ST segment changes. Unremarkable T-waves. I was initially concerned with this right arm swelling given that she reported it was new, it does not look suggestive really of a DVT, but I did wonder about some kind of compressive mass. I ordered a CT scan of the chest, PE protocol. However, given that her records would suggest this is much more longstanding, it seems less likely to be related to anything acute. Nonetheless, will look for any kind of chest lesion, PE, pneumonia. Certainly non-STEMI needs to be considered given her prior history, point of care troponin is pending at this time. Initial troponin 0.04. I had a longer conversation with her regarding her medical history, and they mention things she said O2 yes that does sound familiar. I talked with her about her current living situation, she lives alone in an apartment type billing. She said her 3 and half years ago. She is tearful talking about that and says that she is lonely without him. She does seem to have some confusion, I do not know how close this is to her baseline. She was not able to tell me the month or year, she does note that she is at the hospital. She expresses that her sister's try to tell her what to do and it makes her very angry. Most recently she said that she told them she was going to buy a car and she says they got very upset with her and told her she should not do that. She does say that she keeps it clean house, she has friends at her building and generally feels that she manages fine. She does not have interest in me talking to her sisters. Per nursing, medics said that her apartment is well kept, clean, that there was food in the Fridge. Repeat troponin is 0.07, this is up very minimally from her 1st troponin 0.04, but she has a creatinine of 2.6, an elevated BNP, I suspect that this is not acute coronary syndrome. Her BNP is elevated and I am not entirely sure how this fits in clinically. She does not show signs on exam or imaging of left-sided heart failure or obvious right-sided heart failure. I did the CT scan without contrast due to her kidney failure which is chronic. Creatinine is stable. CT of the chest by Radiology rib view is negative for any acute findings. There was a small lesion in the thyroid that may need ultrasound follow-up, reviewed this with her. Overall, I think she mostly needs to follow with primary care, and I have stressed this with her. She acknowledges that she has not been there for while and that she should go. I am not certain that she understands or remembers all of her health problems that need to be followed up. I put in a social service consult to have them touch base with her, make sure that she has which she need and remind her to follow up with primary care. Return any time for recurrent or significant chest pain, shortness of breath, or other worsening. Vital Signs Vital signs: Initial Vital Signs Temperature 98 F 01/11/25 13:38 Temperature Source Temporal Artery Scan 01/11/25 13:38 Pulse Rate 73 01/11/25 13:38 Pulse Rhythm Regular 01/11/25 13:38 Pulse Strength 3+ Normal 01/11/25 13:38 Respiratory Rate 18 01/11/25 13:38 Blood Pressure 185/81 H 01/11/25 13:38 Blood Pressure Mean 115 H 01/11/25 13:38 Blood Pressure Position Sitting 01/11/25 13:38 Pulse Oximetry 100 01/11/25 13:38 Oxygen Delivery Method Room Air 01/11/25 13:38 Vital Signs Temperature 98 F 01/11/25 13:38 Pulse Rate 73 01/11/25 13:38 Respiratory Rate 18 01/11/25 13:38 Blood Pressure 185/81 H 01/11/25 13:38 Pulse Oximetry 100 01/11/25 13:38 Oxygen Delivery Method Room Air 01/11/25 13:38 Temperature 97.0 F L 01/11/25 17:28 Pulse Rate 62 01/11/25 17:28 Respiratory Rate 18 01/11/25 17:28 Blood Pressure 204/74 H 01/11/25 17:28 Pulse Oximetry 100 01/11/25 17:28 Oxygen Delivery Method Room Air 01/11/25 17:28 Medical Decision Making Lab Data Lab results reviewed: Yes I reviewed the patient's lab results Labs: Lab Results 01/11/25 01/11/25 01/11/25 Range/Units 13:54 14:47 16:35 WBC 4.06 L (4.50-11.00) K/uL RBC 3.84 L (4.00-5.20) m/uL Hgb 11.7 L (12.0-16.0) gm/dL Hct 34.7 (33.0-51.0) % MCV 90 (80-100) fL MCH 31 (26-34) pg MCHC 34 (32-36) gm/dL RDW Coeff of Alissa 12.8 (11.5-15.5) % Plt Count 157 (140-440) K/uL Neut % (Auto) 65.8 (42.0-72.0) % Lymph % (Auto) 20.2 (20-44) % [place] % (Auto) 9.6 (0.0-11.0) % Eos % (Auto) 2.2 (0.0-7.0) % Baso % (Auto) 1.5 (0.0-3.0) % Neut # (Auto) 2.70 (1.7-7.0) K/uL Lymph # (Auto) 0.80 L (0.90-2.90) K/uL [place] # (Auto) 0.40 (0.00-0.90) K/UL Eos # (Auto) 0.10 (0.00-0.50) K/uL Baso # (Auto) 0.10 (0.00-0.30) K/uL Abs Immat Gran (auto) 0.00 (0.00-0.30) K/uL Imm/Tot Granulo (auto) 0.7 % D-Dimer Quant (PE/DVT) 0.71 H (0.00-0.50) ug/ml Sodium 136 (135-149) mmol/L Potassium 4.3 (3.6-5.1) mmol/L Chloride 112 (96-114) mmol/L Carbon Dioxide 18 L (20-32) mmol/L Anion Gap 6 L (7-15) mEq/L BUN 48 H (7-30) mg/dL Creatinine 2.6 H (0.5-1.5) mg/dL Estimated GFR 19 ml/min Glucose 246 H (60-115) mg/dL Calcium 8.6 (8.4-10.6) mg/dL Magnesium 1.8 (1.5-2.6) mg/dL Total Bilirubin 0.2 (0.1-1.5) mg/dL Direct Bilirubin 0.2 (0.0-0.5) mg/dL AST 29 (12-35) U/L ALT 17 (4-35) U/L Alkaline Phosphatase 115 (40-150) U/L C-Reactive Protein < 0.5 L (0.5-1.0) mg/dL NT-Pro-B Natriuret Pep 97834 H (See Note) pg/mL Total Protein 5.5 L (6.0-8.3) g/dL Albumin 2.9 L (3.3-5.0) g/dL POC Troponin I 0.04 0.07 H (0.01-0.04) ng/ml Imaging Data CT scan - chest: Attestation: I have reviewed the pertinent imaging results. Radiologist's impression: Patient: ANDRES HENRIQUEZ Facility: [facility] Site . Site : 1955 Study: CT-Chest WITHOUT-01/11/2025 3:41:16 PM Ordering Physician: Radhika Chiu Final Report: INDICATION: Chest pain, shortness of breath, right arm swelling, history of sarcoma TECHNIQUE: CT chest without contrast. COMPARISON: None. FINDINGS: Lungs and pleura: No suspicious nodules or infiltrates. Minimal basilar atelectasis. No pleural effusions, pleural thickening, or pneumothorax. Heart and vasculature: Heart size is normal. Thoracic aorta and pulmonary artery are normal in caliber. Diffuse atherosclerotic calcification and dense coronary artery calcification and/or coronary stents. Mitral annular calcifications. Lymph nodes/mediastinum: No mediastinal, hilar, or axillary adenopathy. Chest wall: Hypoattenuating, peripherally calcified left thyroid nodule measuring up to 1.8 centimeters in size (series 2, image 14). Dystrophic calcification along the right axilla. Upper abdomen: Small hiatal hernia with prior Alma Rosa-en-Y. Bones: No acute or suspicious abnormality. IMPRESSION: 1. No acute findings within the chest or findings to suggest metastatic disease. 2. Left thyroid ultrasound measuring up to 1.8 centimeters in size, which may be further evaluated with dedicated thyroid ultrasound if not previously performed. Please note that all CT scans at this facility use dose modulation, iterative reconstruction, and/or weight-based dosing when appropriate to reduce radiation dose to as low as reasonably achievable. Dictated by Elvia Akhtar MD @ 01/11/2025 4:11:29 PM Discharge Plan Discharge Clinical Impression: Chest pain, Hypertension, Chronic kidney disease, Insulin dependent type 2 diabetes mellitus Patient Disposition: Home, Self-Care Condition: Improved Instructions: Chest Pain (DC) Additional Instructions: Evaluation for your chest pain is reassuring here. I do not see evidence of a heart attack today. However, you do have several medical problems that really need to be followed with a primary doctor. Your blood pressure and blood sugar are not well controlled today, and we should have you evaluated to follow-up on the chest pain given your history of heart disease. There is also a small lesion in your thyroid that may need follow-up with an ultrasound. Return to the ER if you have more chest pain feel very short of breath or otherwise feel worse. Otherwise, please call Dr. Demarco is [facility], , to schedule a follow-up appointment with him. Prescriptions: No Action No Known Home Medications Follow Up/Referrals: Provider,Not a Local [Primary Care Provider, Family Practice] Stand Alone Forms: [employer] Info Instructions
[2025-01-11 14:58] LABS: Hematocrit 34.7 % (33.0-51.0); Hemoglobin* 11.7 gm/dL (12.0-16.0); Immature Granulocytes Pct Auto 0.7 %; Mean Corpuscular HGB Conc 34 gm/dL (32-36); Mean Corpuscular Hemoglobin 31 pg (26-34); Mean Corpuscular Volume 90 fL (80-100); RDW Coefficient of Variation % 12.8 % (11.5-15.5); Red Blood Count 3.84 m/uL (4.00-5.20); White Blood Count* 4.06 K/uL (4.50-11.00)
[2025-01-11 15:00] LABS: Troponin, Point-of-Care* 0.04 ng/ml (0.01-0.04)
[2025-01-11 15:01] LABS: Immature Granulocytes Abs Auto 0.00 K/uL (0.00-0.30); Lymphocytes Absolute Auto 0.80 K/uL (0.90-2.90); Slide Review Reflex No
[2025-01-11 15:12] LABS: Albumin* 2.9 g/dL (3.3-5.0); Chloride* 112 mmol/L (96-114); Potassium* 4.3 mmol/L (3.6-5.1); Sodium* 136 mmol/L (135-149)
[2025-01-11 15:14] LABS: Blood Urea Nitrogen* 48 mg/dL (7-30); Creatinine* 2.6 mg/dL (0.5-1.5); D Dimer Quantitative* 0.71 ug/ml (0.00-0.50); Estimated Glomerular Filt Rate 19 ml/min
[2025-01-11 15:15] LABS: Alanine Aminotransferase* 17 U/L (4-35); Alkaline Phosphatase* 115 U/L (40-150); Anion Gap 6 mEq/L (7-15); Aspartate Amino Transferase* 29 U/L (12-35); Bilirubin Direct* 0.2 mg/dL (0.0-0.5); Bilirubin Total* 0.2 mg/dL (0.1-1.5); Calcium* 8.6 mg/dL (8.4-10.6); Carbon Dioxide* 18 mmol/L (20-32); Glucose* 246 mg/dL (60-115); Total Protein* 5.5 g/dL (6.0-8.3)
[2025-01-11 15:20] VITALS: BP 203/77; PULSE 66; RESP 18; TEMP 37.1; O2SAT 100
[2025-01-11 15:24] LABS: NT Pro B Type NatriureticPept* 10300 pg/mL (See Note)
[2025-01-11 17:20] LABS: Troponin, Point-of-Care* 0.07 ng/ml (0.01-0.04)
[2025-01-11 17:28] VITALS: BP 204/74; PULSE 62; RESP 18; TEMP 36.1; O2SAT 100
--- NOTE | 2025-01-12 16:08 | PC.SOCIAL ---
Ethylbenzene Converter Operator Consult: parish worker attempted to follow-up with the pt today via phone after her visit to the emergency room yesterday, but she did not answer. parish worker will try to call her back next week. Social work to follow-up as needed.
== END 2025-01-11 18:55 | disposition home or self-care (01) ==
PROVIDERS: Emergency Provider Emergency Medicine
DX: R07.9 Chest pain, unspecified (principal); E11.22 Type 2 diabetes mellitus with diabetic chronic kidney disease; I12.9 Hypertensive chronic kidney disease with stage 1 through stage 4 chronic kidney disease, or unspecified chronic kidney disease
CPT/HCPCS: 36415; 71250; 80048; 80076; 83735; 83880; 84484; 85025; 85379; 85651; 86140; 93005; 94761; 99284

== ENCOUNTER 2025-02-22 10:42 | Emergency (ER) | payer MEDICARE, SELFPAY ==
--- OUTSIDE RECORDS SUMMARY | 2025-02-22 10:45 | XMS_ITS | Clinical Summary ---
Author Organization [facility] Address [address] [place] [id number] Care Team Providers Care Chief Strategy Officer Name Role Phone Srinivas Demarco MD Primary Care Provider [phone] Allergies Active Allergy Reactions Criticality Noted Date Comments Benazepril Headache 10/12/2005 Influenza Virus Vaccines Nausea Only 11/27/2004 Olmesartan Hyperkalemia 08/12/2019 Rpellka-Bqp-Txv Reductase Inhibitors *Unknown 12/14/2016 Tolerating Atorvastatin as [...] unspecified vessel or lesion type, unspecified whether sycuan or transplanted heart Take 1 tablet by mouth once daily. 90 tablet 3 08/14/2019 10:22 AM CDT 08/15/19 20 Active Additional Information Patient not taking.Reported on 11/06/2024 nitroglycerin (NITROSTAT) 0.4 mg sublingual tabletIndication s:Coronary artery disease, angina presence unspecified, unspecified vessel or lesion type, unspecified whether sycuan or transplanted heart Place 1 tablet under [...] mcg) by mouth. 0 09/05/19 21 Active Vmokt-3-IPH-EPA- Fish Oil (Fish Oil) 1,200 (144-216) mg capsule Take by mouth. 0 09/05/19 Active medication order composer Beet extract 3 tabs daily 0 09/05/19 21 Active cyanocobalamin (VITAMIN B12) 1,[address] under the tongue once daily. 0 09/05/19 Active isosorbide mononitrate (IMDUR) 60 mg extended release tablet 24 hourIndications: HTN (hypertension),C oronary artery disease involving sycuan coronary artery of sycuan heart with unstable angina pectoris (HC) TAKE [...] Department Care Team Description 01/11/2025 Nurse Triage [facility] [address] [place] [address] Srinivas Demarco MD Chest Pain 01/09/2025 7:10 PM CDT Ancillary Procedure [facility] [address] [facility] [address] [place] [address] 01/09/2025 7:05 PM CDT Ancillary Procedure [facility] [address] [facility] [address] [place] [address] 01/09/2025 6:10 PM CDT Office Visit [facility] [address] [facility] [address] [place] [address] Bethany Dyer PA Fall 01/09/2025 Travel 12/12/2024 Patient Outreach [facility] Care Management - Care Management Navigation/[facility] [address] [place] [address] Kalyn Garrison LGSW [facility]Community Resource Navigation from Last 3 Months Immunizations Immunization Administration [...] 18+ 09/14/2020 09/15/2019 COVID-19 vaccine series ( season) 2025 Influenza Vaccine (#1) 2025 Lipids for age [...] 7:10 PM CDT Back pain without radiation LIPID PANEL W REFLEX MEASURED LDL Routine 05/30/2020 2:16 PM FOURDRINIER OPERATOR Coronary artery disease involving sycuan coronary artery of sycuan heart with unstable angina pectoris (HC) from [...] [facility] Final Re sult * (ABNORMAL) LIPID PANEL W REFLEX MEASURED LDL (05/30/2020 2:16 PM FOURDRINIER OPERATOR) CHOLESTEROL,TOTAL 330(H) 100 - 199 mg/dL 05/30/2020 7:11 PM FOURDRINIER OPERATOR [facility] TRIGLYCERIDES 222(H) <150 mg/dL 05/30/2020 7:11 PM FOURDRINIER OPERATOR [facility] HDL CHOLESTEROL 52 >40 mg/dL 7:11 PM FOURDRINIER OPERATOR [facility] NON-HDL CHOLESTEROL 278(H) <145 mg/dl 05/30/2020 7:11 PM FOURDRINIER OPERATOR [facility] CHOL/HDL RATIO 6.35(H) <4.50 05/30/2020 7:11 PM FOURDRINIER OPERATOR [facility] LDL CHOLESTEROL 234(H) <=130 mg/dL 05/30/2020 7:11 PM FOURDRINIER OPERATOR [facility] PROVIDER ORDERED STATUS RANDOM 05/30/2020 7:11 PM FOURDRINIER OPERATOR [facility] Blood BLOOD SPECIMEN / Unknown Venipuncture / Unknown 05/30/2020 2:16 PM FOURDRINIER OPERATOR 05/30/2020 2:17 PM FOURDRINIER OPERATOR Emily Green MD CHEMISTRY Final Result [facility] [address] [place] [address], [place] from Last 3 Months or Most Recently Relevant to Health Maintenance Insurance MEDICARE PART A HB ONLY MEDICARE PB ONLY MEDICARE PART B HB ONLY Advance Directives * Full Code (Latest Code Status on File) Date Activated Date Inactivated Comments 08/12/2019 12:58 AM 08/20/2019 4:14 PM Care Teams Chief Strategy Officer Relationship Specialty Start Date End Date Srinivas Demarco MD [address] [place] [id number] PCP - General Family Practice 09/04/20
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
[2025-02-22 11:00] VITALS: BP 209/113; PULSE 89; RESP 18; TEMP 36.6; O2SAT 97
--- NOTE | 2025-02-22 11:11 | ED_ITS ---
HPI - General Adult General Date Seen: 02/22/25 Chief complaint: Altered Mental Status Stated complaint: Suspected shingles Time Seen by Provider: 02/22/25 11:08 History of Present Illness HPI narrative: 69 yo F presenting to the ER today with concern for insect bites. For the triage nurse patient says that she went to the clinic yesterday but did not have an appointment. She was told by the clinic yesterday to schedule an appointment for today. She came back to the clinic today without an appointment and today was directed to come to the ER. Patient is concerned because she has trouble with bug bites. She has bug bites on her arms, around her head and neck, and multiple spots on her body. She says that these bug bites have been troubling her for a long time and she can not get them to go way. She captured several bugs and brought them with her (crushed) on a table cloth today. She has been dealing with these bugs for a while. She says they are getting into her apartment. She does not know how they get there. She says she tries to swallow them in spray them with bug killer, but they are always more bugs. Her bug bites are itchy. She has not noted that the getting worse, peeling off, or otherwise worsening and other rashes. She does not have any fever. No trouble breathing. No trouble in her mouth or throat. She tried to see her doctor yesterday but did not have an appointment. She went back to her doctor today but also did not have an appointment so was directed to the. She says she is just frustrated about the ongoing bug bites in does not know how to get rid of them. When I ask her about her living situation she has a little bit vague. She does live in a 3 story apartment building. She lives on the ground floor. She likes her apartment. She says that herself and also several other people live in the apartment building have been experiencing lots of small bugs in their apartment lately. She has tried to talk to her apartment recycling operations manager but they apparently will not do anything about the bugs. She does not know how other people to apartment. When I ask her if she has checked for any signs of cracks or leaks around her window that might allow bugs to fly in from the outside she does mention that this a large glass picture window. It sounds like there might be a leak there. Related Data Previous Rx's ?Medication ?Instructions ?Recorded cetirizine 10 mg capsule 10 mg PO DAILY PRN allergy 1 symptoms #14 caps Allergies Allergy/AdvReac Type Severity Reaction Status Date / Time olmesartan Allergy Intermediate hyperkalemi Verified 02/22/25 11:05 a benazepril Allergy Unknown Unknown Verified 02/22/25 11:05 HMG-CoA reductase inhibitor Allergy Mild Unknown Uncoded 01/11/25 14:13 Influenza Vaccines Allergy Mild Nausea Uncoded 01/11/25 14:13 [facility] Medical History History of sarcoma of soft tissue (2003) ?Z85.831 - Personal history of malignant neoplasm of soft tissue (ICD-10) History of pulmonary valve stenosis ?Z86.79 - Personal history of other diseases of the circulatory system (ICD- 10) History of malignant neoplasm of uterus (2001) ?Z85.42 - Personal history of malignant neoplasm of other parts of uterus (ICD-10) History of cardioversion (03/01/17) ?Z98.890 - Other specified postprocedural states (ICD-10) Surgical History History of Alma Rosa-en-Y gastric bypass (2005) ?Z98.84 - Bariatric surgery status (ICD-10) History of hysterectomy (2001) ?Z90.710 - Acquired absence of both cervix and uterus (ICD-10) History of coronary artery stent placement (07/2015) ?Z95.5 - Presence of coronary angioplasty implant and graft (ICD-10) Family History Father Diabetes Sister Diabetes Mother COPD (chronic obstructive pulmonary disease) Social History Narrative: . in October 2021. Lives in [address] [facility] [address]. On social security disability for endometrial cancer and associated health problems. 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 Moved back from [place] due to 's health issues. She has a daughter and 2 grand children in [place]. Originally from [place]. Walks for exercise. No tobacco, alcohol or recreational drug use. Smoking Status: Former smoker Do you use any of these nicotine containing products: None Second hand tobacco smoke exposure: No How often do you have a drink containing alcohol: monthly or less AUDIT-C Alcohol total score: 1 Non-prescribed substance use: denies use Exam Narrative: Exam Narrative: Constitutional: Appears well-developed and well-nourished. Alert. Conversant. Non toxic. HENT: Head: Atraumatic. Nose: Nose normal. Mouth/Throat: Oral mucosa is clear and moist. no trismus. Pharynx normal. Eyes: Conjunctivae normal. EOM normal. Pupils equal, round, and reactive to light. No scleral icterus. Neck: Normal range of motion. Neck supple. No tracheal deviation present. Cardiovascular: Normal rate, regular rhythm. No gallop. No friction rub. No murmur heard. Pulmonary/Chest: Effort normal. No stridor. No respiratory distress. No wheezes. No rales. No rhonchi . Musculoskeletal: RUE: Normal range of motion. No tenderness. No deformity LUE: Normal range of motion. No tenderness. No deformity RLE: Normal range of motion. No edema. No tenderness. No deformity LLE: Normal range of motion. No edema. No tenderness. No deformity. Neurological: Alert and oriented to person, place, and time. Normal strength. CN II-VII intact. No sensory deficit. GCS eye subscore is 4. GCS verbal subscore is 5. GCS motor subscore is 6. Normal coordination Skin: Patient does have multiple small flat excoriated lesions on the skin of her forearms, around her neck. These appear to be bug bites and many of them have been scabbed over after scratching. I do not see any surrounding erythema, purulent drainage. I do not see any clear streaks of excoriation to suggest a dermatomal pattern or shingles. Otherwise, Skin is warm and dry. No rash noted. No pallor. Normal capillary refill. Psychiatric: Well dressed well groomed. Polite and appropriate. She expresses apologies for being in the ER and also frustration for being sent here. She just wanted to see her regular doctor, but could not get an appointment. She at times is somewhat flat and depressed and becomes tearful when talking about her . They had been for a long time until he 3 years ago. She misses him dearly. At other times she is fairly expressive, intelligent, and witty. Overall seems a little depressed. Const: Vital Signs, click to edit/add: Vital Signs - 24 hr 02/22/25 11:00 Temperature 98 F Pulse Rate [Right Pulse Oximeter] 89 Respiratory Rate 18 Blood Pressure [Le ft Upper Arm] 209/113 H Pulse Oximetry 97 Oxygen Delivery Me thod Room Air Course Vital Signs Vital signs: Initial Vital Signs Temperature 98 F 02/22/25 11:00 Temperature Source Temporal Artery Scan 02/22/25 11:00 Pulse Rate 89 02/22/25 11:00 Pulse Rhythm Regular 02/22/25 11:00 Pulse Strength 3+ Normal 02/22/25 11:00 Respiratory Rate 18 02/22/25 11:00 Blood Pressure 209/113 H 02/22/25 11:00 Blood Pressure Mean 145 H 02/22/25 11:00 Blood Pressure Position Sitting 02/22/25 11:00 Pulse Oximetry 97 02/22/25 11:00 Oxygen Delivery Method Room Air 02/22/25 11:00 Vital Signs Temperature 98 F 02/22/25 11:00 Pulse Rate 89 02/22/25 11:00 Respiratory Rate 18 02/22/25 11:00 Blood Pressure 209/113 H 02/22/25 11:00 Pulse Oximetry 97 02/22/25 11:00 Oxygen Delivery Method Room Air 02/22/25 11:00 Temperature 98 F 02/22/25 11:00 Pulse Rate 89 02/22/25 11:00 Respiratory Rate 18 02/22/25 11:00 Blood Pressure 209/113 H 02/22/25 11:00 Pulse Oximetry 97 02/22/25 11:00 Oxygen Delivery Method Room Air 02/22/25 11:00 Medical Decision Making MDM Narrative Medical decision making narrative: Very pleasant 69-year-old female presenting to the ER today with bug bites. 1. She expresses concern because she just wanted to see her primary care provider in the clinic but could not get an appointment. It sounds like there is a little bit of an odd situation there where she showed up at clinic yesterday without an appointment asking to be seen. She was told yesterday to come back today but misunderstood and did not actually schedule an appointment for today. Therefore which came back to the clinic today she still do not have an appointment and was thus referred to the ER. At this point she is interacting appropriately, expressing her apologies and frustration for being here in the ER. She does not feel like her visit is truly an emergency room problem. Although it is a bit odd that she did not schedule an appointment in clinic, I do not think she has a mental health crisis, confusion, or altered mental status or dementia that is impairing her ability to care for herself. 2. In terms of the bug bites himself she does have multiple excoriated lesions on the skin of her arms and around her neck. These certainly could be consistent with bug bites the bed it scratched. I do not see any signs of superimposed bacterial infection. At this point I do not see any evidence for other concerning pathology such as Opst-Devan syndrome, TEN, drug eruption, shingles, bacterial superinfection. She is not having any symptoms of a systemic allergic reaction. No signs of airway involvement or bronchospasm or anaphylaxis. I think it would be appropriate to treat the bug bites supportively with antihistamines. would pr efer to ovoid Benadryl due to excess sedation side effects an anticholinergic properties. Will try short p.r.n. course of Zyrtec. She captured several of the bug since wash them on a disc clots and brought them with her. They are very small black insects. They appear to be gnats. 3. The patient is also expressing frustration. It sounds like these are flying gnats and there probably getting into her apartment through some crack around her windows or an open window or door. She does not know how other getting in. She has apparently been complaining to her housing property manager about the bugs in her apartment. I encouraged her to work again with her housing property manager and asked them to come evaluate Department for leaks around the windows. If bugs or getting in, also cold air will get into her apartment during the winter. She says she will be able to do that. I did provide her with a doctor note indicating that she should ask her cocktail lounge manager to evaluate her apartment for leaks. Discharge Plan Discharge Clinical Impression: Insect bite Patient Disposition: Home, Self-Care Instructions: Insect Bite or Sting (ED) Additional Instructions: As we discussed, please work with your horse farm manager of your apartment building to have your apartment checked. We suspect that there is probably a gap around your window frame or under your door, or a hole in the screen that is long these bugs to come in from outside. If you can stop the dogs from getting into your partner, you will not have to deal with the bug bites anymore. If your bug bites are itchy, you can use antihistamines such as Zyrtec (cetirizine) as needed. please see your doctor or come back to the ER right away if you have worsening rash, signs of infection such as redness or swelling around the bug bites, high fever, sores in your mouth or around her eyes. Prescriptions: New cetirizine 10 mg capsule 10 mg PO DAILY PRN (Reason: allergy symptoms) Qty: 14 0RF Follow Up/Referrals: Provider,Not a Local [Primary Care Provider, Family Practice] Stand Alone Forms: Work/School Release, MyHealth Info Instructions
== END 2025-02-22 12:00 | disposition home or self-care (01) ==
LOC: ED 11:43
PROVIDERS: Emergency Provider Emergency Medicine; PCP Family Medicine
DX: S40.862A Insect bite (nonvenomous) of left upper arm, initial encounter (principal); S40.861A Insect bite (nonvenomous) of right upper arm, initial encounter; S10.96XA Insect bite of unspecified part of neck, initial encounter; S00.96XA Insect bite (nonvenomous) of unspecified part of head, initial encounter
CPT/HCPCS: 99282; 99283

== ENCOUNTER 2025-02-28 11:24 | Outpatient (CLI) | payer MEDICARE, SELFPAY ==
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
== END 2025-02-28 11:25 | disposition home or self-care (01) ==
LOC: AMB 03-01 11:09
PROVIDERS: PCP Family Medicine; Visit Provider Emergency Medicine
DX: R07.89 Other chest pain (principal)
CPT/HCPCS: A0425; A0427